=== PATIENT | female | born 1945 | race Caucasian/White ===

== ENCOUNTER 2020-03-18 10:27 | Inpatient (IN) | payer MEDICARE, OTHER ==
--- NOTE | 2020-03-18 11:49 | CR ---
PROCEDURE INFORMATION: Exam: XR Chest, 1 View Exam date and time: 03/18/2020 11:31 AM Age: 74 years old Clinical indication: Shortness of breath; Additional info: Shortness of breath; Covid +; Hypoxia TECHNIQUE: Imaging protocol: XR of the chest Views: 1 view. COMPARISON: CT Chest w Cont 10/04/2017 2:09 PM FINDINGS: Lungs: There are mild patchy scattered airspace infiltrates. Pleural space: Unremarkable. No pleural effusion. No pneumothorax. Heart/Mediastinum: Unremarkable. No cardiomegaly. Bones/joints: Degenerative narrowing bilateral shoulder joints with sclerotic bilateral humeral heads and remodeling deformity is identified. Left shoulder heterotopic bone formation. Soft tissues: There is a left chest wall pacemaker with dual leads. IMPRESSION: 1. Patchy airspace infiltrates compatible with pneumonitis in the correct clinical setting. 2. 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 3. Stable left chest wall pacemaker
--- NOTE | 2020-03-18 11:50 | EDM.PDOC ---
"ED HPI GENERAL MEDICAL PROBLEM - General Chief Complaint: Respiratory Problem Stated Complaint: covid+ ambulance Time Seen by Provider: 03/18/20 11:20 Source of Information: Reports: Patient, EMS, EMS Notes Reviewed, Old Records, RN, RN Notes Reviewed History Limitations: Reports: No Limitations - History of Present Illness INITIAL COMMENTS - FREE TEXT/NARRATIVE: Patient presents to the ED via EMS with complaints of shortness of breath and weakness. The patient states she was diagnosed with COVID on 03/14/2020 following symptoms of weakness and muscle aches which began 03/09/2020. She states her shortness of breath, weakness, and muscle aches have progressively worsened since she was seen in the clinic on the . She is unable to check her saturations at home, but her oxygen saturations were noted to be in the mid- 80s or RA upon EMS arrival. She attest to a history of CHF and denies asthma/COPD. She denies headache, fever, vision changes, chest pain/pressure, palpitations, dyspepsia, vomiting, or diarrhea. She does attest to shaking chills and nausea. She denies tobacco, alcohol, or recreational drug use. - Related Data Allergies Allergy/AdvReac Type Severity Reaction Status Date / Time azithromycin Allergy Nausea Verified 10/04/17 13:19 ceftriaxone Allergy Cannot Verified 10/04/17 13:19 Remember doxycycline Allergy Nausea and Verified 10/04/17 13:19 Vomiting erythromycin base Allergy Nausea Verified 10/04/17 13:19 Estrogens Allergy Other Verified 10/04/17 13:19 furosemide Allergy Hypotension Verified 10/04/17 13:19 levofloxacin [From Levaquin] Allergy Nausea Verified 10/04/17 13:19 lisinopril Allergy Hypotension Verified 10/04/17 13:19 losartan potassium Allergy Cough Verified 10/04/17 13:19 [From Cozaar] metoprolol succinate Allergy Hypotension Verified 10/04/17 13:19 [From Toprol XL] morphine Allergy Lightheaded Verified 10/04/17 13:19 ness ramipril Allergy Hypotension Verified 10/04/17 13:19 simvastatin Allergy Weakness Verified 10/04/17 13:19 Thiazides Allergy Hypotension Verified 10/04/17 13:19 flu vaccine Allergy Nausea and Uncoded 10/04/17 13:19 Vomiting statins Allergy Weakness Uncoded 10/04/17 13:19 Home Meds: Home Meds Ascorbic Acid [Vitamin C] 1 tab PO DAILY 07/17/14 [History] Aspirin [Adult Low Dose Aspirin EC] 1 tab PO DAILY 07/17/14 [History] Bumetanide [Bumex] 0.5 mg PO DAILY 07/17/14 [History] Cetirizine [ZyrTEC] 1 tab PO DAILY PRN 07/17/14 [History] Cyclobenzaprine [Flexeril] 1 tab PO BID 07/17/14 [History] Hydrocodone/Acetaminophen [Everett 10-325] 1 tab PO ASDIRECTED PRN 07/17/14 [History] Lidocaine 5% [Lidoderm 5%] 1 patch TOP DAILY PRN 07/17/14 [History] Multivit-Min/FA/Lycopen/Lutein [Centrum Silver Tablet] 1 tab PO DAILY 07/17/14 [History] Nitroglycerin [Nitrostat] 1 tab SL ASDIRECTED PRN 07/17/14 [History] Pantoprazole [ProTONIX] 1 tab PO DAILY 07/17/14 [History] Red Yeast Rice 1 tab PO DAILY 07/17/14 [History] Vitamin D 1 tab PO DAILY 07/17/14 [History] allopurinoL [Zyloprim] 1 tab PO DAILY 07/17/14 [History] carvediloL [Coreg] 12.5 mg PO BID 07/17/14 [History] metFORMIN [Glucophage] 1 tab PO BID 07/17/14 [History] oxyCODONE ER [OxyCONTIN] 1 tab PO BID 07/17/14 [History] Albuterol Sulfate [Proventil Hfa] 2 puff IH Q4HR PRN 03/14/15 [History] Valsartan [Diovan] 160 mg PO DAILY 03/14/15 [History] Heparin Sodium/D5W [Heparin 25,000 Units in D5W 500 ML] 500 ml IV TITRATE bag 03/15/15 [Rx] Nystatin [Nystatin Crm] 15 gm TOP TID tube 03/15/15 [Rx] Past Medical History HEENT History: Reports: Impaired Vision Cardiovascular History: Reports: High Cholesterol, Hypertension, [place], Pacemaker Respiratory History: Reports: SOB Gastrointestinal History: Reports: Cholelithiasis Endocrine/Metabolic History: Reports: Diabetes, Type II - Past Surgical History Other Musculoskeletal Surgeries/Procedures:: back surgery X5 Social & Family History - Family History Family Medical History: No Pertinent Family History - Caffeine Use Caffeine Use: Reports: None ED ROS GENERAL - Review of Systems Review Of Systems: Comprehensive ROS is negative, except as noted in HPI. ED EXAM, GENERAL - Physical Exam Exam: See Below Exam Limited By: No Limitations General Appearance: Alert, Mild Distress (Dyspnea at rest) Eye Exam: Bilateral Eye: Abnormal EOM, Normal Inspection, PERRL (4mm) Ears: Normal External Exam, Normal Canal, Hearing Grossly Normal, Normal TMs Ear Exam: Bilateral Ear: Auricle Normal, Canal Normal, TM normal Throat/Mouth: Normal Inspection, Normal Voice, No Airway Compromise. No: Normal Oropharynx (Dry mucous membranes) Head: Atraumatic, Normocephalic Neck: Normal Inspection, Supple, Non-Tender, Full Range of Motion. No: Lymphadenopathy (L), Lymphadenopathy (R) Respiratory/Chest: Chest Non-Tender, Decreased Breath Sounds, Rales (To left lobes), Wheezing (Inspiratory to bilateral upper lobes) Cardiovascular: Normal Peripheral Pulses, Regular Rate, Rhythm, No Gallop, No JVD, No Murmur, No Rub. No: No Edema Peripheral Pulses: 1+: Dorsalis Pedis (L), Dorsalis Pedis (R), 2+: Radial (L), Radial (R) GI/Abdominal: Normal Bowel Sounds, Soft, Non-Tender, No Distention, No Mass, Pelvis Stable (Female) Exam: Deferred Rectal (Female) Exam: Deferred Back Exam: Normal Inspection, Full Range of Motion Extremities: Normal Range of Motion, Non-Tender, Normal Capillary Refill, Pedal Edema (+1 pitting, bilaterally) Neurological: Alert, Oriented, CN II-XII Intact, Normal Cognition, No Motor/Sensory Deficits Psychiatric: Normal Affect, Normal Mood Skin Exam: Warm, Dry, Intact, Pallor. No: Ecchymosis, Erythema, Mottled, Petechiae #1 Interpretation EKG Date: 03/18/20 Time: 12:02 Rhythm: Other (V-Paced) Course - Vital Signs Last Recorded V/S: Last Vital Signs Temp 98.1 F 03/18/20 10:56 Pulse 77 03/18/20 10:56 Resp 18 03/18/20 10:56 BP 122/45 L 03/18/20 10:56 Pulse Ox 86 L 03/18/20 10:56 - Orders/Labs/Meds Orders: Active Orders 24 hr Category Date Time Status EKG Documentation Completion [RC] STAT Care 03/18/20 11:54 Active Labs: Laboratory Tests 03/18/20 03/18/20 03/18/20 Range/Units 11:39 11:39 11:39 WBC 5.6 (5.0-10.0) 10^3/uL RBC 4.15 L (4.2-5.4) 10^6/uL Hgb 12.4 (12.0-16.0) g/dL Hct 38.8 (37.0-47.0) % MCV 93.5 D (80-100) fL MCH 29.9 (27.0-34.0) pg MCHC 32.0 L (33.0-35.0) g/dL Plt Count 113 L D (150-450) 10^3/uL Neut % (Auto) 67.8 (42.2-75.2) % Lymph % (Auto) 18.8 L (20.5-50.1) % Nash % (Auto) 12.1 H (2-8) % Eos % (Auto) 1.1 (1.0-3.0) % Baso % (Auto) 0.2 (0.0-1.0) % D-Dimer, Quantitative 1930 H (0-400) ng/mL Sodium 135 L (136-145) mmol/L Potassium 4.3 (3.5-5.1) mmol/L Chloride 100 (98-107) mmol/L Carbon Dioxide 27 (21-32) mmol/L Anion Gap 12.3 (7-13) mEq/L BUN 15 (7-18) mg/dL Creatinine 0.95 (0.55-1.02) mg/dL Est Cr Clr Drug Dosing 50.52 mL/min Estimated GFR (MDRD) 58 BUN/Creatinine Ratio 15.8 (No establ ref range) Glucose 120 H (74-99) mg/dL Lactic Acid (0.4-2.0) mmol/L Calcium 8.2 L (8.5-10.1) mg/dL Total Bilirubin 0.5 (0.2-1.0) mg/dL AST 32 (15-37) U/L ALT 33 (14-59) U/L Alkaline Phosphatase 98 (46-116) U/L Troponin I 0.025 (0.000-0.056) ng/mL B-Natriuretic Peptide 81 (0-100) pg/ml Total Protein 6.3 L (6.4-8.2) g/dL Albumin 2.9 L (3.4-5.0) g/dL Globulin 3.4 Albumin/Globulin Ratio 0.85 12/11/20 Range/Units 11:39 WBC (5.0-10.0) 10^3/uL RBC (4.2-5.4) 10^6/uL Hgb (12.0-16.0) g/dL Hct (37.0-47.0) % MCV (80-100) fL MCH (27.0-34.0) pg MCHC (33.0-35.0) g/dL Plt Count (150-450) 10^3/uL Neut % (Auto) (42.2-75.2) % Lymph % (Auto) (20.5-50.1) % Nash % (Auto) (2-8) % Eos % (Auto) (1.0-3.0) % Baso % (Auto) (0.0-1.0) % D-Dimer, Quantitative (0-400) ng/mL Sodium (136-145) mmol/L Potassium (3.5-5.1) mmol/L Chloride (98-107) mmol/L Carbon Dioxide (21-32) mmol/L Anion Gap (7-13) mEq/L BUN (7-18) mg/dL Creatinine (0.55-1.02) mg/dL Est Cr Clr Drug Dosing mL/min Estimated GFR (MDRD) BUN/Creatinine Ratio (No establ ref range) Glucose (74-99) mg/dL Lactic Acid 0.8 (0.4-2.0) mmol/L Calcium (8.5-10.1) mg/dL Total Bilirubin (0.2-1.0) mg/dL AST (15-37) U/L ALT (14-59) U/L Alkaline Phosphatase (46-116) U/L Troponin I (0.000-0.056) ng/mL B-Natriuretic Peptide (0-100) pg/ml Total Protein (6.4-8.2) g/dL Albumin (3.4-5.0) g/dL Globulin Albumin/Globulin Ratio Meds: Medications Discontinued Medications Generic Name Dose Route Start Last Admin Trade Name Park PRN Reason Stop Dose Admin Iopamidol 100 ml 03/18/20 12:40 03/18/20 14:10 Isovue-370 (76%) IVPUSH 03/18/20 12:41 79 ml ONETIME ONE Administration - Radiology Interpretation Free Text/Narrative:: [facility] [place] [facility] Final Radiology Report Call: [phone] assistance Online chat: [email or web address] Name: RUBY HOLLY Age: 74Years F Date: 03/18/2020 SSN: -- : [id number] Study: CT CHEST W CONT Requesting Physician: Ann Marie Maxwell Images: [id number] Addl Studies: Provided Clinical History: Shortness of breath; COVID+, D-Dimer above 1900, RULE OUT PE Contrast: With Contrast Medium: isovue 300 Contrast Amount: 79 mL Contrast Method: Intravenous (IV) Page 1 of 2 PROCEDURE INFORMATION: Exam: CT Chest With Contrast; Diagnostic Exam date and time: 03/18/2020 1:29 PM Age: 74 years old Clinical indication: Shortness of breath; Prior surgery; Surgery date: 6+ months; Surgery type: Pacemaker; Additional info: Shortness of breath; Covid+, d-dimer above 1900, rule out pe TECHNIQUE: Imaging protocol: Diagnostic computed tomography of the chest with intravenous contrast. Radiation optimization: All CT scans at this facility use at least one of these dose optimization techniques: automated exposure control; mA and/or kV adjustment per patient size (includes targeted exams where dose is matched to clinical indication); or iterative reconstruction. Contrast material: ISOVUE 300; Contrast volume: 79 ml; Contrast route: INTRAVENOUS (IV); COMPARISON: CT Chest w Cont 10/04/2017 2:09 PM FINDINGS: Tubes, catheters and devices: Stable implanted left chest wall pacemaker and lead wires. Pulmonary arteries: The main pulmonary trunk measures 3.1 cm and is associated with pulmonary hypertension. No pulmonary artery filling defects. Lungs: Unremarkable. Mild patchy bilateral small round opacities predominating within the upper lobes. No masses. Pleural space: Unremarkable. No pneumothorax. Right small pericardial effusion and trace left trace pleural effusion. Heart: Unremarkable. Stable cardiomegaly. Small pericardial effusion with some improvement in comparison to prior exam. Aorta: Mild atherosclerotic calcification No aortic aneurysm. Lymph nodes: Unremarkable. No enlarged lymph nodes. RUBY HOLLY | Final Radiology Report CONFIDENTIALITY STATEMENT This report is intended only for use by the referring physician, and only in accordance with law. If you received this in error, call [phone]. Page 2 of 2 Bones/joints: Unchanged degenerative thoracic disease with greatest severity at the thoracolumbar spine. No acute fracture. Soft tissues: Unremarkable. Liver: Moderate diffuse hepatic fatty infiltration on visualized imaging. Cholecystectomy. IMPRESSION: 1. No evidence of pulmonary embolic disease. 2. Multifocal round ground-glass opacities predominating within the upper lobes. Commonly reporting imaging features of(COVID-19) pneumonia are present. These findings are nonspecific and can occur with a variety of infectious and noninfectious processes. 3. Small bilateral pleural effusions. 4. Chronic findings which include moderate cardiomegaly with small pericardial effusion, pulmonary hypertension, left chest wall pacemaker, hepatic steatosis, cholecystectomy and thoracic degenerative disease. Thank you for allowing us to participate in the care of your patient. Dictated and Authenticated by: Melisa Alfred MD 03/18/2020 2:42 PM Central Time ([place] & [place]) - Re-Assessments/Exams Free Text/Narrative Re-Assessment/Exam: 03/18/20 Workup unremarkable for acute processes. D-dimer elevated, no evidence of PE on study. Case discussed with Dr. Pereira who kindly agreed to accept the patient for inpatient admission for COVID pneumonia and hypoxia. Plan of care discussed with patient who verbalized understanding and agreement. Departure - Departure Time of Disposition: 14:49 Disposition: Admitted As Inpatient 66 Condition: Good Clinical Impression: Pneumonia due to COVID-19 virus, Hypoxia, Elevated d-dimer - Discharge Information Forms: ED Department Discharge Sepsis Event Note (ED) - Evaluation Sepsis Screening Result: No Definite Risk - Focused Exam Vital Signs: Vital Signs Temp Pulse Resp BP Pulse Ox 03/18/20 10:56 98.1 F 77 18 122/45 L 86 L - My Orders Last 24 Hours: My Active Orders 03/18/20 11:54 EKG Documentation Completion [RC] STAT - Assessment/Plan Last 24 Hours: My Active Orders 03/18/20 11:54 EKG Documentation Completion [RC] STAT"
[2020-03-18 12:14] LABS: ANION GAP 12.3 mEq/L (7-13)
[2020-03-18] MEDS ORDERED: Iopamidol 755 Mg/ML 100 ML Bottle IVPUSH ONE (12:40)
--- NOTE | 2020-03-18 14:43 | CT ---
PROCEDURE INFORMATION: Exam: CT Chest With Contrast; Diagnostic Exam date and time: 03/18/2020 1:29 PM Age: 74 years old Clinical indication: Shortness of breath; Prior surgery; Surgery date: 6+ months; Surgery type: Pacemaker; Additional info: Shortness of breath; Covid+, d-dimer above 1900, rule out pe TECHNIQUE: Imaging protocol: Diagnostic computed tomography of the chest with intravenous contrast. Radiation optimization: All CT scans at this facility use at least one of these dose optimization techniques: automated exposure control; mA and/or kV adjustment per patient size (includes targeted exams where dose is matched to clinical indication); or iterative reconstruction. Contrast material: ISOVUE 300; Contrast volume: 79 ml; Contrast route: INTRAVENOUS (IV); COMPARISON: CT Chest w Cont 10/04/2017 2:09 PM FINDINGS: Tubes, catheters and devices: Stable implanted left chest wall pacemaker and lead wires. Pulmonary arteries: The main pulmonary trunk measures 3.1 cm and is associated with pulmonary hypertension. No pulmonary artery filling defects. Lungs: Unremarkable. Mild patchy bilateral small round opacities predominating within the upper lobes. No masses. Pleural space: Unremarkable. No pneumothorax. Right small pericardial effusion and trace left trace pleural effusion. Heart: Unremarkable. Stable cardiomegaly. Small pericardial effusion with some improvement in comparison to prior exam. Aorta: Mild atherosclerotic calcification No aortic aneurysm. Lymph nodes: Unremarkable. No enlarged lymph nodes. Bones/joints: Unchanged degenerative thoracic disease with greatest severity at the thoracolumbar spine. No acute fracture. Soft tissues: Unremarkable. Liver: Moderate diffuse hepatic fatty infiltration on visualized imaging. Cholecystectomy. IMPRESSION: 1. No evidence of pulmonary embolic disease. 2. Multifocal round ground-glass opacities predominating within the upper lobes. Commonly reporting imaging features of(COVID-19) pneumonia are present. These findings are nonspecific and can occur with a variety of infectious and noninfectious processes. 3. Small bilateral pleural effusions. 4. Chronic findings which include moderate cardiomegaly with small pericardial effusion, pulmonary hypertension, left chest wall pacemaker, hepatic steatosis, cholecystectomy and thoracic degenerative disease.
[2020-03-18] MEDS ORDERED: Docusate Sodium 100 MG Cap PO PRN (15:07)
[2020-03-18] MEDS ORDERED: Acetaminophen 325 MG Tab PO PRN (15:07)
[2020-03-18] MEDS ORDERED: oxyCODONE 5 MG Tab PO PRN (15:07)
[2020-03-18] MEDS ORDERED: 50% Dextrose in Water 50 ML Syringe IV PRN (15:31)
[2020-03-18] MEDS ORDERED: Glucagon,Human Recombinant 1 MG Vial IM PRN (15:31)
[2020-03-18] MEDS ORDERED: Lidocaine 5% 700 MG Patch TOP PRN (15:34)
[2020-03-18] MEDS ORDERED: Nitroglycerin 0.4 MG Tab.SL SL PRN (15:34)
--- NOTE | 2020-03-18 16:08 | HP ---
CHIEF COMPLAINT: Shortness of breath. HISTORY OF PRESENT ILLNESS: The patient is a 74-year-old female who was admitted through the emergency room because the patient has been complaining of shortness of breath and weakness and she was diagnosed with COVID on 03/14/2020 following symptoms of weakness and muscle ache, which began 03/09/2020, and the patient's shortness of breath and weakness and muscle aches have progressively worsened since she was seen at the clinic on the . In the emergency room, her oxygen saturation on room air was in the 80s and she had a CAT scan of the chest which showed ground-glass appearance compatible with COVID pneumonia. Because of the above, she was then admitted for further evaluation and management. PAST MEDICAL HISTORY: Remarkable for dyslipidemia, hypertension, coronary artery disease, history of pacemaker placement, type 2 diabetes mellitus. FAMILY HISTORY: Noncontributory. SOCIAL HISTORY: The patient is . Nonsmoker, nonalcohol drinker. HOME MEDICATIONS: Ascorbic acid, aspirin, Bumex, Flexeril, hydrocodone, multivitamins, Protonix, vitamin D, allopurinol, Coreg, metformin, oxycodone, valsartan, albuterol inhaler. ALLERGIES: Azithromycin, ceftriaxone, doxycycline, estrogen, Lasix, levofloxacin, lisinopril, losartan, metoprolol, ramipril, simvastatin, thiazides, and statins. REVIEW OF SYSTEMS: The patient denies any headache, fever, chills, chest pain, palpitation, abdominal pain, vomiting, and diarrhea. PHYSICAL EXAMINATION: General: The patient is alert and oriented in mild respiratory distress. Vital Signs: Blood pressure is 122/45, pulse of 77, respirations 18, temperature of 98.1, and saturation is 86% on room air. SHEENT: Normocephalic. There are pink palpebral conjunctivae. Sclerae anicteric. Neck: No JVD. No lymphadenopathy. Heart: Regular rate and rhythm. No gallops. No rubs. Lungs: Decreased breath sounds on both bases with faint crackles on the left lung, and there is occasional wheezing. Abdomen: Soft, nontender, bowel sounds positive. Extremities: Negative for any calf tenderness. There is trace to 1+ bilateral pedal edema. LABORATORY DATA: Lab workup, CBC; WBC is 5.6, hemoglobin is 12.4, hematocrit is 38.8, platelets 113. D-dimer is 1930. Lactic acid is 0.8. Comp panel; sodium is 135, glucose is 120, calcium of 8.2, total protein is 6.3, albumin is 2.9, the rest of the panel unremarkable. Troponin is 0.025. BNP is 81, which is within normal limits. Chest x-ray showed patchy airspace infiltrates compatible with pneumonitis. CAT scan of the chest is negative for any evidence of pulmonary embolic disease. There is multifocal round ground-glass opacity within the upper lobes compatible with COVID pneumonia. ADMITTING DIAGNOSES: 1. Coronavirus disease pneumonia. 2. Hypoxemia. 3. History of pacemaker placement. 4. Coronary artery disease. 5. Type 2 diabetes mellitus. TREATMENT PLAN: The patient is going to be admitted to the COVID Unit. She will be started on IV dexamethasone. We will also discuss with the patient about remdesivir. She will be on DVT prophylaxis and we will resume her home medication and the rest of the management as necessary. [facility] /[id number]
[2020-03-18] MEDS: Dexamethasone 4 MG/ML SDV IVPUSH SCH (16:39)
[2020-03-18] MEDS: Albuterol 6.7 GM Inhaler INH SCH ×2 (16:40→21:57)
[2020-03-18] MEDS: Enoxaparin 40 MG/0.4 ML Syringe SUBCUT SCH (16:40)
[2020-03-18] MEDS: Mometasone Furoate Powder 220 MCG/Puff 14 Dose Inhaler INH SCH ×2 (16:47→17:01)
[2020-03-18] MEDS: Insulin Lispro 100 Units/ML 3 ML Vial SUBCUT SCH ×2 (17:19→21:29)
[2020-03-18] MEDS: Piperacillin/Tazobactam 3.375 GM in Sodium Chloride 0.9% 100 ML IV SCH (17:52)
[2020-03-18] MEDS: oxyCODONE ER 10 MG TAB.ER PO SCH (22:01)
[2020-03-18] MEDS: Nystatin Crm 15 GM Tube TOP SCH (22:04)
[2020-03-18] MEDS: Carvedilol 25 MG Tab PO SCH (22:11)
[2020-03-18] MEDS: Sodium Chloride 0.9% 10 ML Syringe FLUSH PRN (22:14)
[2020-03-19] MEDS: Sodium Chloride 0.9% 10 ML Syringe FLUSH PRN ×5 (00:16→20:43)
[2020-03-19] MEDS: Piperacillin/Tazobactam 3.375 GM in Sodium Chloride 0.9% 100 ML IV SCH ×5 (00:17→23:33)
[2020-03-19] MEDS: Pantoprazole 40 MG Tab.CR PO SCH (06:02)
[2020-03-19] MEDS: Mometasone Furoate Powder 220 MCG/Puff 14 Dose Inhaler INH SCH ×2 (06:04→17:39)
[2020-03-19 06:41] LABS: ANION GAP 12.2 mEq/L (7-13)
[2020-03-19] MEDS ORDERED: Bumetanide 1 MG Tab PO SCH (09:00)
--- NOTE | 2020-03-19 09:15 | PN ---
DATE: 03/19/2020 SUBJECTIVE: The patient had a good night sleep. She still has some shortness of breath, but this has been stable, and this morning she is complaining of diarrhea. Otherwise, she denies any fever, chills, chest pain, abdominal pain, nor any other complaints. LABORATORY DATA: Lab workup this morning. CBC; WBC 2.5, hemoglobin is 13.5, hematocrit is 42.1, platelets 138. Comp panel is remarkable for a glucose of 146, total protein of 6.2, albumin of 3. The rest of the panel unremarkable. OBJECTIVE: Vital Signs: Blood pressure is 127/58, pulse of 72, respiration of 18, temperature of 96.5, saturation is 97% on 2 L per nasal cannula. Heart: Regular rate and rhythm. Normal S1 and S2. No gallops. No rubs. Lungs: Diminished breath sounds on both bases but no crackles, no wheezing. Abdomen: Obese, soft, nontender. Bowel sounds positive. Extremities: Negative for any significant pedal edema. No calf tenderness. MEDICATIONS: Reviewed. PLAN: We will continue with her present management, and with regard to her diarrhea, I am just going to give her some Imodium, and if this diarrhea continues, then we will do the stool analysis and probably hold her Zosyn. [facility] /[id number]
[2020-03-19] MEDS: Insulin Lispro 100 Units/ML 3 ML Vial SUBCUT SCH ×4 (09:48→20:51)
[2020-03-19] MEDS: Enoxaparin 40 MG/0.4 ML Syringe SUBCUT SCH (09:50)
[2020-03-19] MEDS: Multivitamins, Therapeutic with Minerals Tab PO SCH (09:51)
[2020-03-19] MEDS: Aspirin 81 MG Tab.EC PO SCH (09:51)
[2020-03-19] MEDS: Allopurinol 300 MG Tab PO SCH (09:51)
[2020-03-19] MEDS: oxyCODONE ER 10 MG TAB.ER PO SCH ×2 (09:52→20:49)
[2020-03-19] MEDS: Ascorbic Acid 500 MG Tab PO SCH (09:53)
[2020-03-19] MEDS: Carvedilol 25 MG Tab PO SCH ×2 (09:55→20:45)
[2020-03-19] MEDS: Dexamethasone 4 MG/ML SDV IVPUSH SCH (09:57)
[2020-03-19] MEDS: Nystatin Crm 15 GM Tube TOP SCH ×3 (09:57→20:46)
[2020-03-19] MEDS: REMDESIVIR 100 MG in Sodium Chloride 0.9% 100 ML IV SCH (09:58)
[2020-03-19] MEDS: Albuterol 6.7 GM Inhaler INH SCH ×4 (09:59→20:48)
[2020-03-19] MEDS: Loperamide 2 MG Cap PO PRN (12:58)
--- NOTE | 2020-03-19 13:49 | HP ---
CONTINUATION: I have also discussed with the patient regarding the EUA for remdesivir and the patient is agreeable to this. I am also going to empirically put the patient on IV antibiotics (Zosyn) and we will also get blood cultures. The patient is a full code. [facility] /[id number]
--- NOTE | 2020-03-19 13:49 | HP ---
CONTINUATION: I spoke with the patient and provided information about remdesivir treatment as being under emergency use authorization and not fully FDA approved or reviewed. I discussed potential side effects including liver abnormalities and also discussed other potential treatment options that are currently not FDA approved to treat COVID-19. The patient gives permission for remdesivir. [facility] /[id number]
[2020-03-20] MEDS: Piperacillin/Tazobactam 3.375 GM in Sodium Chloride 0.9% 100 ML IV SCH ×3 (05:31→18:42)
[2020-03-20] MEDS: Pantoprazole 40 MG Tab.CR PO SCH (05:31)
[2020-03-20] MEDS: Loperamide 2 MG Cap PO PRN (05:32)
[2020-03-20] MEDS: Mometasone Furoate Powder 220 MCG/Puff 14 Dose Inhaler INH SCH ×3 (05:32→18:42)
[2020-03-20] MEDS: Enoxaparin 40 MG/0.4 ML Syringe SUBCUT SCH (08:20)
[2020-03-20] MEDS: oxyCODONE ER 10 MG TAB.ER PO SCH ×2 (08:21→21:47)
[2020-03-20] MEDS: Multivitamins, Therapeutic with Minerals Tab PO SCH (08:23)
[2020-03-20] MEDS: Allopurinol 300 MG Tab PO SCH (08:23)
[2020-03-20] MEDS: Aspirin 81 MG Tab.EC PO SCH (08:24)
[2020-03-20] MEDS: Carvedilol 25 MG Tab PO SCH ×3 (08:24→21:50)
[2020-03-20] MEDS: Insulin Lispro 100 Units/ML 3 ML Vial SUBCUT SCH ×4 (08:26→21:44)
[2020-03-20] MEDS: Ascorbic Acid 500 MG Tab PO SCH (08:27)
[2020-03-20] MEDS: Dexamethasone 4 MG/ML SDV IVPUSH SCH (08:28)
[2020-03-20] MEDS: REMDESIVIR 100 MG in Sodium Chloride 0.9% 100 ML IV SCH (08:32)
--- NOTE | 2020-03-20 09:58 | PN ---
DATE: 03/20/2020 SUBJECTIVE: The patient mentioned that she still has loose bowel movement every time she gets the Zosyn, but Imodium seems to be helping. The patient also mentioned that she only takes Bumex 0.5 mg every other day and recently, she has been also getting 1 mg daily. She feels that she is getting a little bit dehydrated. Otherwise, denies any worsening of shortness of breath. Denies any chest pain, fever, chills, orthopnea, PND, or any other complaints. LABORATORY DATA: Lab workup this morning, glucose is 138. OBJECTIVE: Vital Signs: Blood pressure is 159/83, pulse of 83, respiration of 20, temperature of 98.6, saturation is 93% on 2 L per nasal cannula. Heart: Regular rate and rhythm. Normal S1 and S2. No gallops. No rubs. Lungs: Diminished breath sounds on both bases, but no significant crackles, no wheezing. Abdomen: Obese, soft, nontender. Bowel sounds positive. Extremities: Negative for any significant pedal edema. No calf tenderness. PLAN: I am going to hold her Bumex. Otherwise, we will continue with her dexamethasone IV, remdesivir, and continue with Zosyn. I will check for CBC and CMP in a.m. [facility] /[id number]
[2020-03-20] MEDS: Nystatin Crm 15 GM Tube TOP SCH ×3 (10:00→21:52)
[2020-03-20] MEDS: Albuterol 6.7 GM Inhaler INH SCH ×4 (10:00→21:53)
[2020-03-20] MEDS: Acetaminophen/HYDROcodone 325-10 MG Tab PO PRN (16:55)
[2020-03-20] MEDS: Melatonin 3 MG Tab PO PRN (21:46)
[2020-03-21] MEDS: Sodium Chloride 0.9% 10 ML Syringe FLUSH PRN ×3 (00:14→08:13)
[2020-03-21] MEDS: Piperacillin/Tazobactam 3.375 GM in Sodium Chloride 0.9% 100 ML IV SCH ×2 (00:15→05:59)
[2020-03-21] MEDS: Pantoprazole 40 MG Tab.CR PO SCH (05:57)
[2020-03-21] MEDS: Mometasone Furoate Powder 220 MCG/Puff 14 Dose Inhaler INH SCH ×3 (06:05→17:16)
[2020-03-21] MEDS: Ondansetron 4 MG Tab.DIS PO PRN (06:12)
[2020-03-21 06:52] LABS: ANION GAP 14.5 mEq/L (7-13)
[2020-03-21] MEDS: REMDESIVIR 100 MG in Sodium Chloride 0.9% 100 ML IV SCH (08:01)
[2020-03-21] MEDS: Enoxaparin 40 MG/0.4 ML Syringe SUBCUT SCH (08:05)
[2020-03-21] MEDS: Loperamide 2 MG Cap PO PRN ×2 (08:07→20:59)
[2020-03-21] MEDS: Multivitamins, Therapeutic with Minerals Tab PO SCH (08:07)
[2020-03-21] MEDS: Carvedilol 25 MG Tab PO SCH ×3 (08:07→17:16)
[2020-03-21] MEDS: Allopurinol 300 MG Tab PO SCH (08:07)
[2020-03-21] MEDS: Ascorbic Acid 500 MG Tab PO SCH (08:07)
[2020-03-21] MEDS: oxyCODONE ER 10 MG TAB.ER PO SCH ×2 (08:08→20:59)
[2020-03-21] MEDS: Aspirin 81 MG Tab.EC PO SCH (08:09)
[2020-03-21] MEDS: Dexamethasone 4 MG/ML SDV IVPUSH SCH (08:13)
[2020-03-21] MEDS: Albuterol 6.7 GM Inhaler INH SCH ×4 (08:14→21:05)
[2020-03-21] MEDS: Nystatin Crm 15 GM Tube TOP SCH (08:14)
[2020-03-21] MEDS: Insulin Lispro 100 Units/ML 3 ML Vial SUBCUT SCH ×5 (09:39→21:02)
[2020-03-21] MEDS ORDERED: Sodium Chloride 0.9% 1,000 ML IV SCH (09:45)
[2020-03-21] MEDS ORDERED: Nystatin Topical Powder 30 GM Bottle TOP PRN (09:58)
--- NOTE | 2020-03-21 12:05 | PN ---
DATE: 03/21/2020 SUBJECTIVE: The patient is still complaining of loose bowel movement, and still feeling weak and appetite being poor. The patient denies though any chest pain. Denies any worsening of shortness of breath, abdominal pain, vomiting, nor any other complaints. LABORATORY DATA: Lab workup this morning. CBC unremarkable. Comp panel; carbon dioxide is 14.5, creatinine is 1.04, glucose is 144, AST of 44, total protein of 6.1, albumin is 3.1. The rest of the panel unremarkable. OBJECTIVE: Vital Signs: Blood pressure is 148/68, pulse of 74, respirations of 18, temperature of 98.2, saturation is 96% on 2 L per nasal cannula. SHEENT: Normocephalic. There are pink palpebral conjunctivae. Sclerae anicteric. Neck: No JVD. No lymphadenopathy. Heart: Regular rate and rhythm. Normal S1 and S2. No gallops. No rubs. Lungs: Diminished breath sounds on both bases, but no crackles, no wheezing. Abdomen: Moderately obese, soft, nontender. Bowel sounds positive. Extremities: Negative for any pedal edema. No calf tenderness. MEDICATIONS: Reviewed. PLAN: I am going to discontinue the Zosyn as this is causing the patient some diarrhea and her WBC is also within normal limits, and I do not think that she has any underlying bacterial pneumonia, although procalcitonin level is still pending, but we will continue with her dexamethasone, Remdesivir, and the rest of her management. [facility] /[id number]
[2020-03-21] MEDS: Acetaminophen/HYDROcodone 325-10 MG Tab PO PRN ×2 (13:48→22:31)
[2020-03-21] MEDS: Melatonin 3 MG Tab PO PRN (21:00)
[2020-03-22] MEDS: Loperamide 2 MG Cap PO PRN ×2 (01:03→05:43)
[2020-03-22] MEDS: Ondansetron 4 MG Tab.DIS PO PRN (03:12)
[2020-03-22] MEDS: Pantoprazole 40 MG Tab.CR PO SCH (05:43)
[2020-03-22] MEDS: Mometasone Furoate Powder 220 MCG/Puff 14 Dose Inhaler INH SCH ×3 (05:45→17:54)
[2020-03-22 07:08] LABS: ANION GAP 11.4 mEq/L (7-13); CHLORIDE,CL 106 mmol/L (98-107); SODIUM,NA 145 mmol/L (136-145)
[2020-03-22] MEDS ORDERED: Potassium Chloride 10 MEQ Tab.ER PO ONE (07:24)
[2020-03-22] MEDS: Ascorbic Acid 500 MG Tab PO SCH (08:27)
[2020-03-22] MEDS: Allopurinol 300 MG Tab PO SCH (08:27)
[2020-03-22] MEDS: Carvedilol 25 MG Tab PO SCH ×2 (08:28→17:53)
[2020-03-22] MEDS: Multivitamins, Therapeutic with Minerals Tab PO SCH (08:28)
[2020-03-22] MEDS: oxyCODONE ER 10 MG TAB.ER PO SCH ×2 (08:29→21:00)
[2020-03-22] MEDS: Dexamethasone 4 MG/ML SDV IVPUSH SCH (08:30)
[2020-03-22] MEDS: Aspirin 81 MG Tab.EC PO SCH (08:30)
[2020-03-22] MEDS: Enoxaparin 40 MG/0.4 ML Syringe SUBCUT SCH (08:31)
[2020-03-22] MEDS: REMDESIVIR 100 MG in Sodium Chloride 0.9% 100 ML IV SCH (08:37)
[2020-03-22] MEDS ORDERED: Atropine/Diphenoxylate 0.025-2.5 MG Tab PO PRN (09:18)
[2020-03-22] MEDS: Insulin Lispro 100 Units/ML 3 ML Vial SUBCUT SCH ×4 (09:41→20:59)
[2020-03-22] MEDS: Sodium Chloride 0.9% 1,000 ML IV SCH ×2 (10:02→22:25)
[2020-03-22] MEDS: Albuterol 6.7 GM Inhaler INH SCH ×4 (10:06→21:02)
[2020-03-22] MEDS: Nystatin Topical Powder 30 GM Bottle TOP SCH ×3 (10:07→20:20)
--- NOTE | 2020-03-22 12:00 | PN ---
DATE: 03/22/2020 SUBJECTIVE: The patient is still complaining of diarrhea and loose bowel movement, and she had about 8 times bowel movement last night, but she denies any worsening of shortness of breath, no fever, chills, or any significant abdominal pain. LABORATORY DATA: Lab workup this morning, CBC unremarkable, and comp panel; potassium is 3.4, glucose is 136, AST is 44, total protein is 5.8, albumin is 3, the rest of the panel unremarkable. OBJECTIVE: Vital Signs: Blood pressure is 158/79, pulse of 73, respirations of 20, temperature of 98.3, and saturation is 96% on 1 L per nasal cannula. Heart: Regular rate and rhythm. No gallops. No rubs. Lungs: Diminished breath sounds on both bases, but no crackles, no wheezing. Abdomen: Obese, soft, nontender. Bowel sounds positive. Extremities: Negative for any significant pedal edema. No calf tenderness. PLAN: I will give her some more IV fluids cautiously because of her history of CHF. I am going to send her stool for analysis including culture and C diff and I am going to change her Imodium to Lomotil, as Imodium does not seem to be helping her. Otherwise, we will continue with the rest of her management. [facility] /[id number]
[2020-03-22] MEDS: Acetaminophen/HYDROcodone 325-10 MG Tab PO PRN ×2 (15:34→22:44)
[2020-03-22] MEDS: Melatonin 3 MG Tab PO PRN (21:01)
[2020-03-23] MEDS: Pantoprazole 40 MG Tab.CR PO SCH (05:45)
[2020-03-23] MEDS: Mometasone Furoate Powder 220 MCG/Puff 14 Dose Inhaler INH SCH ×3 (05:46→17:24)
[2020-03-23] MEDS: Albuterol 6.7 GM Inhaler INH SCH ×4 (08:30→23:34)
[2020-03-23] MEDS: Carvedilol 25 MG Tab PO SCH ×2 (08:31→18:38)
[2020-03-23] MEDS: oxyCODONE ER 10 MG TAB.ER PO SCH ×2 (08:32→23:30)
[2020-03-23] MEDS: Allopurinol 300 MG Tab PO SCH (08:32)
[2020-03-23] MEDS: Multivitamins, Therapeutic with Minerals Tab PO SCH (08:32)
[2020-03-23] MEDS: Ascorbic Acid 500 MG Tab PO SCH (08:34)
[2020-03-23] MEDS: Aspirin 81 MG Tab.EC PO SCH (08:34)
[2020-03-23] MEDS: Dexamethasone 4 MG/ML SDV IVPUSH SCH (08:36)
[2020-03-23] MEDS: Enoxaparin 40 MG/0.4 ML Syringe SUBCUT SCH (08:39)
[2020-03-23] MEDS: Insulin Lispro 100 Units/ML 3 ML Vial SUBCUT SCH ×4 (09:59→23:28)
[2020-03-23] MEDS: Nystatin Topical Powder 30 GM Bottle TOP SCH ×3 (11:23→23:32)
--- NOTE | 2020-03-23 11:23 | PCM.PN ---
- General Info Date of Service: 03/23/20 Subjective Update: Patient continues to have cough. Still has shortness of breath Was having diarrhea but that has improved with Imodium. Indicates that she has nausea today. - Review of Systems General: Reports: Weakness, Fatigue Pulmonary: Reports: Shortness of Breath, Cough Cardiovascular: Reports: Dyspnea on Exertion Gastrointestinal: Reports: No Symptoms Skin: Reports: No Symptoms - Patient Data Vitals - Most Recent: Last Vital Signs Temp 36.6 C 03/23/20 08:00 Pulse 70 03/23/20 08:31 Resp 20 03/23/20 08:00 BP 153/93 H 03/23/20 08:31 Pulse Ox 93 L 03/23/20 08:00 Weight - Most Recent: 99.79 kg I&O - Last 24 Hours: Intake & Output 03/22/20 03/23/20 03/23/20 22:59 06:59 14:59 Intake Total 1658 552 450 Balance 1658 552 450 Lab Results Last 24 Hours: Laboratory Results - last 24 hr 03/22/20 03/22/20 03/22/20 Range/Units 12:02 16:50 20:57 POC Glucose 146 H 158 H 123 H (83-110) mg/dl 03/23/20 Range/Units 08:24 POC Glucose 108 (83-110) mg/dl Rc Results Last 24 Hours: Microbiology 03/18/20 11:39 Aerobic Blood Culture - Preliminary Blood - Venous - Lab Draw NO GROWTH AFTER 4 DAYS Anaerobic Blood Culture - Final Med Orders - Current: Current Medications Acetaminophen (Tylenol) 650 mg PO Q4H PRN PRN Reason: Pain (Mild 1-3)/fever Last Admin: 03/20/20 13:58 Dose: 650 mg Documented by: Hydrocodone Bitart/Acetaminophen ([place] 325-10 Mg) 1 tab PO Q4H PRN PRN Reason: Pain Last Admin: 03/22/20 22:44 Dose: 1 tab Documented by: Albuterol (Proventil Hfa) 0 gm INH QID [facility] Last Admin: 03/23/20 08:30 Dose: 2 puff Documented by: Allopurinol (Zyloprim) 300 mg PO DAILY [facility] Last Admin: 03/23/20 08:32 Dose: 300 mg Documented by: Ascorbic Acid (Vitamin C) 500 mg PO DAILY [facility] Last Admin: 03/23/20 08:34 Dose: 500 mg Documented by: Aspirin (Halfprin) 81 mg PO DAILY [facility] Last Admin: 03/23/20 08:34 Dose: 81 mg Documented by: Carvedilol (Coreg) 25 mg PO BIDMEALS [facility] Last Admin: 03/23/20 08:31 Dose: 25 mg Documented by: Dexamethasone (Decadron) 6 mg IVPUSH DAILY [facility] Stop: 03/27/20 09:01 Last Admin: 03/23/20 08:36 Dose: 6 mg Documented by: Dextrose/Water (Dextrose 50% In Water) 50 ml IV ASDIRECTED PRN PRN Reason: Hypoglycemia Diphenoxylate HCl/Atropine (Lomotil 0.025-2.5 Mg) 1 tab PO QID PRN PRN Reason: Diarrhea Last Admin: 03/22/20 10:02 Dose: 1 tab Documented by: Docusate Sodium (Colace) 100 mg PO BID PRN PRN Reason: Constipation Enoxaparin Sodium (Lovenox) 40 mg SUBCUT DAILY [facility] Last Admin: 03/23/20 08:39 Dose: 40 mg Documented by: Glucagon (Glucagen) 1 mg IM ASDIRECTED PRN PRN Reason: Hypoglycemia Sodium Chloride (Normal Saline) 1,000 mls @ 75 mls/hr IV ASDIRECTED [facility] Last Infusion: 03/23/20 10:39 Dose: 75 mls/hr Documented by: Insulin Human Lispro (Humalog) 0 unit SUBCUT WITHMEALSANDBED [facility]; Protocol Last Admin: 03/23/20 09:59 Dose: Not Given Documented by: Lidocaine (Lidoderm 5%) 700 mg TOP DAILY PRN PRN Reason: Pain Melatonin (Melatonin) 9 mg PO BEDTIME PRN PRN Reason: Sleep Last Admin: 03/22/20 21:01 Dose: 9 mg Documented by: Mometasone Furoate (Asmanex 220 Mcg) 2 puff INH BIDRT [facility] Last Admin: 03/23/20 06:37 Dose: Not Given Documented by: Multivitamins/Minerals (Vitamins And Minerals) 1 tab PO DAILY [facility] Last Admin: 03/23/20 08:32 Dose: 1 tab Documented by: Nitroglycerin (Nitrostat) 0.4 mg SL ASDIRECTED PRN PRN Reason: Chest Pain Nystatin (Nystop) 0 gm TOP TID [facility] Last Admin: 03/22/20 20:20 Dose: 1 applic Documented by: Ondansetron HCl (Zofran Odt) 4 mg PO Q4H PRN PRN Reason: nausea, able to take PO Last Admin: 03/22/20 03:12 Dose: 4 mg Documented by: Oxycodone HCl (Oxycontin) 10 mg PO BID [facility] Last Admin: 03/23/20 08:32 Dose: 10 mg Documented by: Pantoprazole Sodium (Protonix) 40 mg PO ACBRK [facility] Last Admin: 03/23/20 05:45 Dose: 40 mg Documented by: Sodium Chloride (Saline Flush) 10 ml FLUSH ASDIRECTED PRN PRN Reason: Keep Vein Open Last Admin: 03/21/20 08:13 Dose: 10 ml Documented by: Discontinued Medications Bumetanide (Bumex) 1 mg PO DAILY [facility] Last Admin: 03/19/20 09:51 Dose: 1 mg Documented by: Carvedilol (Coreg) 12.5 mg PO BID [facility] Last Admin: 03/20/20 08:24 Dose: 12.5 mg Documented by: Carvedilol (Coreg) 25 mg PO BID [facility] Last Admin: 03/20/20 21:50 Dose: 12.5 mg Documented by: Remdesivir 200 mg/ Sodium (Chloride) 210 mls @ 210 mls/hr IV ONETIME ONE Stop: 03/18/20 16:59 Last Admin: 03/18/20 16:40 Dose: 210 mls/hr Documented by: Remdesivir 100 mg/ Sodium (Chloride) 100 mls @ 100 mls/hr IV Q24H [facility] Stop: 03/22/20 09:59 Last Admin: 03/22/20 08:37 Dose: 100 mls/hr Documented by: Piperacillin Sod/Tazobactam (Sod 3.375 gm/ Sodium Chloride) 100 mls @ 200 mls/hr IV Q6HR [facility] Last Infusion: 03/21/20 06:39 Dose: Infused Documented by: Sodium Chloride (Normal Saline) 1,000 mls @ 125 mls/hr IV ASDIRECTED [facility] Stop: 03/21/20 17:44 Last Admin: 03/21/20 10:18 Dose: 125 mls/hr Documented by: Iopamidol (Isovue-370 (76%)) 100 ml IVPUSH ONETIME ONE Stop: 03/18/20 12:41 Last Admin: 03/18/20 14:10 Dose: 79 ml Documented by: Loperamide HCl (Imodium) 2 mg PO Q4H PRN PRN Reason: Diarrhea Last Admin: 03/22/20 05:43 Dose: 2 mg Documented by: Nystatin (Nystatin Crm) 15 gm TOP TID [facility] Last Admin: 03/21/20 08:14 Dose: 1 applic Documented by: Nystatin (Nystop) 0 gm TOP TID PRN PRN Reason: Other Oxycodone HCl (Oxycodone) 5 mg PO Q4H PRN PRN Reason: Pain (moderate 4-6) Potassium Chloride (Klor-Con 10) 40 meq PO ONETIME ONE Stop: 03/22/20 07:25 Last Admin: 03/22/20 08:26 Dose: 40 meq Documented by: - Exam Quality Assessment: Supplemental Oxygen General: Alert, Oriented Lungs: Clear to Auscultation, Decreased Breath Sounds Cardiovascular: Regular Rate, Regular Rhythm Extremities: Normal Inspection, Normal Range of Motion, Non-Tender, No Pedal Edema, Normal Capillary Refill Sepsis Event Note - Evaluation Sepsis Screening Result: No Definite Risk - Focused Exam Vital Signs: Vital Signs Temp Pulse Pulse Resp BP BP Pulse Ox 03/23/20 08:31 70 153/93 H 03/23/20 08:00 36.6 C 93 20 153/93 H 93 L 03/23/20 03:44 36.8 C 71 20 128/69 92 L - Problem List Review Problem List Initiated/Reviewed/Updated: Yes - My Orders Last 24 Hours: My Active Orders 03/23/20 11:19 FERRITIN [CHEM] Routine 03/24/20 05:11 BASIC METABOLIC PANEL,BMP [CHEM] AM CBC W/O DIFF,HEMOGRAM [HEME] AM - Plan Plan:: #. Acute hypoxemic respiratory failure Secondary to COVID-19 pneumonia #. COVID-19 pneumonia Treated with remdesivir, Decadron and is also on intravenous antibiotics. #. Chronic diastolic congestive heart failure Bumex is on hold #. Diabetes mellitus type 2 Blood sugars elevated because of steroids #. Status post pacemaker placement Plan: Wean down oxygen as tolerated Discontinue intravenous fluids Incentive spirometry Advance the patient's diet Send sample for basic metabolic panel Send sample for complete blood count Send sample for procalcitonin level. Anticipate possible discharge in the morning.
[2020-03-23] MEDS: Melatonin 3 MG Tab PO PRN (23:30)
[2020-03-24] MEDS: Pantoprazole 40 MG Tab.CR PO SCH (05:28)
[2020-03-24 07:10] LABS: ANION GAP 11.7 mEq/L (7-13); CHLORIDE,CL 104 mmol/L (98-107); SODIUM,NA 141 mmol/L (136-145)
[2020-03-24] MEDS: Insulin Lispro 100 Units/ML 3 ML Vial SUBCUT SCH ×2 (08:34→11:48)
[2020-03-24 09:31] VITALS: BP 123/64
[2020-03-24] MEDS: Mometasone Furoate Powder 220 MCG/Puff 14 Dose Inhaler INH SCH (09:32)
[2020-03-24] MEDS: oxyCODONE ER 10 MG TAB.ER PO SCH (09:35)
[2020-03-24] MEDS: Allopurinol 300 MG Tab PO SCH (09:36)
[2020-03-24] MEDS: Multivitamins, Therapeutic with Minerals Tab PO SCH (09:36)
[2020-03-24] MEDS: Carvedilol 25 MG Tab PO SCH (09:36)
[2020-03-24] MEDS: Ascorbic Acid 500 MG Tab PO SCH (09:37)
[2020-03-24] MEDS: Aspirin 81 MG Tab.EC PO SCH (09:37)
[2020-03-24] MEDS: Dexamethasone 4 MG/ML SDV IVPUSH SCH (09:38)
[2020-03-24] MEDS: Albuterol 6.7 GM Inhaler INH SCH ×2 (09:38→13:28)
[2020-03-24] MEDS: Enoxaparin 40 MG/0.4 ML Syringe SUBCUT SCH (09:46)
[2020-03-24] MEDS: Nystatin Topical Powder 30 GM Bottle TOP SCH ×2 (09:48→13:28)
--- NOTE | 2020-03-24 11:25 | PCM.DCSUM1 ---
Discharge Summary - Hospital Course Free Text/Narrative:: Is a 74-year-old female with medical history of diabetes mellitus type 2, coronary artery disease, CHF, status post pacemaker placement who was admitted with complaint of shortness of breath and was found to be hypoxic. She tested positive for COVID-19 and was also found to have COVID-19 pneumonia. The patient was treated with remdesivir, dexamethasone and also received intravenous antibiotics. Clinically she has improved and has been weaned off from [place] pplemental oxygen. Patient will be discharged home to follow-up with primary care provider in 1 week. #. Acute hypoxemic respiratory failure Secondary to COVID-19 pneumonia #. COVID-19 pneumonia Treated with remdesivir, Decadron and is also on intravenous antibiotics. #. Chronic diastolic congestive heart failure Restarted on Bumex #. Diabetes mellitus type 2 Blood sugars elevated because of steroids #. Status post pacemaker placement Diagnosis: Stroke: No - Discharge Data Discharge Date: 03/24/20 Discharge Disposition: Home, Self-Care 01 Condition: Good - Referral to Home Health Primary Care Physician: Francisco Pereira MD - Patient Instructions Other/Special Instructions: F/up with PMD in one week - Discharge Plan Prescriptions/Med Rec: dexAMETHasone [Decadron] 6 mg PO DAILY 4 Days #4 tablet Home Medications: Home Meds Ascorbic Acid [Vitamin C] 1 tab PO DAILY 07/17/14 [History] Aspirin [Adult Low Dose Aspirin EC] 1 tab PO DAILY 07/17/14 [History] Bumetanide [Bumex] 1 mg PO DAILY 07/17/14 [History] Cetirizine [ZyrTEC] 1 tab PO DAILY 07/17/14 [History] Hydrocodone/Acetaminophen [[place] 10-325] 1 tab PO Q4H PRN 07/17/14 [History] Lidocaine 5% [Lidoderm 5%] 1 patch TOP DAILY PRN 07/17/14 [History] Multivit-Min/FA/Lycopen/Lutein [Centrum Silver Tablet] 1 tab PO DAILY 07/17/14 [History] Nitroglycerin [Nitrostat] 1 tab SL ASDIRECTED PRN 07/17/14 [History] Pantoprazole [ProTONIX] 1 tab PO DAILY 07/17/14 [History] Vitamin D 1 tab PO DAILY 07/17/14 [History] allopurinoL [Zyloprim] 1 tab PO DAILY 07/17/14 [History] carvediloL [Coreg] 12.5 mg PO BID 07/17/14 [History] metFORMIN [Glucophage] 500 mg PO BID 07/17/14 [History] oxyCODONE ER [OxyCONTIN] 10 mg PO BID 07/17/14 [History] Nystatin [Nystatin Crm] 15 gm TOP TID tube 03/15/15 [Rx] dexAMETHasone [Decadron] 6 mg PO DAILY 4 Days #4 tablet 03/24/20 [Rx] Patient Handouts: COVID-19 Frequently Asked Questions, COVID-19: How to Protect Yourself and Others - CDC, Community-Acquired Pneumonia, Adult, [id number], Prevent the Spread of COVID-19 if You Are Sick - [facility] Referrals: Collette Haro NP [Ordering Only Provider] - (post hospital appointment on SaturdayMarch 29 at 9:20am.) - Discharge Summary/Plan Comment DC Time >30 min.: No - Patient Data Vitals - Most Recent: Last Vital Signs Temp 37.1 C 03/24/20 09:31 Pulse 76 03/24/20 09:36 Resp 18 03/24/20 09:31 BP 123/64 03/24/20 09:36 Pulse Ox 96 03/24/20 09:31 Weight - Most Recent: 98.43 kg I&O - Last 24 hours: Intake & Output 03/23/20 03/24/20 03/24/20 22:59 06:59 14:59 Intake Total 240 200 Balance 240 200 Lab Results - Last 24 hrs: Laboratory Results - last 24 hr 03/23/20 03/23/20 03/23/20 Range/Units 11:19 12:30 16:54 WBC (5.0-10.0) 10^3/uL RBC (4.2-5.4) 10^6/uL Hgb (12.0-16.0) g/dL Hct (37.0-47.0) % MCV (80-100) fL MCH (27.0-34.0) pg MCHC (33.0-35.0) g/dL Plt Count (150-450) 10^3/uL Sodium (136-145) mmol/L Potassium (3.5-5.1) mmol/L Chloride (98-107) mmol/L Carbon Dioxide (21-32) mmol/L Anion Gap (7-13) mEq/L BUN (7-18) mg/dL Creatinine (0.55-1.02) mg/dL Est Cr Clr Drug Dosing mL/min Estimated GFR (MDRD) Glucose (74-99) mg/dL POC Glucose 127 H 234 H (83-110) mg/dl Calcium (8.5-10.1) mg/dL Ferritin 540 H (8-252) mg/mL 03/23/20 03/24/20 03/24/20 Range/Units 23:25 06:30 06:30 WBC 7.6 (5.0-10.0) 10^3/uL RBC 4.62 (4.2-5.4) 10^6/uL Hgb 13.5 (12.0-16.0) g/dL Hct 41.2 (37.0-47.0) % MCV 89.2 (80-100) fL MCH 29.2 (27.0-34.0) pg MCHC 32.8 L (33.0-35.0) g/dL Plt Count 190 (150-450) 10^3/uL Sodium 141 (136-145) mmol/L Potassium 3.7 (3.5-5.1) mmol/L Chloride 104 (98-107) mmol/L Carbon Dioxide 29 (21-32) mmol/L Anion Gap 11.7 (7-13) mEq/L BUN 20 H (7-18) mg/dL Creatinine 0.87 (0.55-1.02) mg/dL Est Cr Clr Drug Dosing 55.17 mL/min Estimated GFR (MDRD) > 60 Glucose 140 H (74-99) mg/dL POC Glucose 128 H (83-110) mg/dl Calcium 8.7 (8.5-10.1) mg/dL Ferritin (8-252) mg/mL 03/24/20 Range/Units 08:34 WBC (5.0-10.0) 10^3/uL RBC (4.2-5.4) 10^6/uL Hgb (12.0-16.0) g/dL Hct (37.0-47.0) % MCV (80-100) fL MCH (27.0-34.0) pg MCHC (33.0-35.0) g/dL Plt Count (150-450) 10^3/uL Sodium (136-145) mmol/L Potassium (3.5-5.1) mmol/L Chloride (98-107) mmol/L Carbon Dioxide (21-32) mmol/L Anion Gap (7-13) mEq/L BUN (7-18) mg/dL Creatinine (0.55-1.02) mg/dL Est Cr Clr Drug Dosing mL/min Estimated GFR (MDRD) Glucose (74-99) mg/dL POC Glucose 132 H (83-110) mg/dl Calcium (8.5-10.1) mg/dL Ferritin (8-252) mg/mL DEYANIRA Results - Last 24 hrs: Microbiology 03/18/20 11:39 Aerobic Blood Culture - Final Blood - Venous - Lab Draw NO GROWTH AFTER 5 DAYS Anaerobic Blood Culture - Final Med Orders - Current: Current Medications Acetaminophen (Tylenol) 650 mg PO Q4H PRN PRN Reason: Pain (Mild 1-3)/fever Last Admin: 03/20/20 13:58 Dose: 650 mg Documented by: Hydrocodone Bitart/Acetaminophen ([place] 325-10 Mg) 1 tab PO Q4H PRN PRN Reason: Pain Last Admin: 03/22/20 22:44 Dose: 1 tab Documented by: Albuterol (Proventil Hfa) 0 gm INH QID [facility] Last Admin: 03/24/20 09:38 Dose: 2 puff Documented by: Allopurinol (Zyloprim) 300 mg PO DAILY [facility] Last Admin: 03/24/20 09:36 Dose: 300 mg Documented by: Ascorbic Acid (Vitamin C) 500 mg PO DAILY [facility] Last Admin: 03/24/20 09:37 Dose: 500 mg Documented by: Aspirin (Halfprin) 81 mg PO DAILY [facility] Last Admin: 03/24/20 09:37 Dose: 81 mg Documented by: Carvedilol (Coreg) 25 mg PO BIDMEALS [facility] Last Admin: 03/24/20 09:36 Dose: 25 mg Documented by: Dexamethasone (Decadron) 6 mg IVPUSH DAILY [facility] Stop: 03/27/20 09:01 Last Admin: 03/24/20 09:38 Dose: 6 mg Documented by: Dextrose/Water (Dextrose 50% In Water) 50 ml IV ASDIRECTED PRN PRN Reason: Hypoglycemia Diphenoxylate HCl/Atropine (Lomotil 0.025-2.5 Mg) 1 tab PO QID PRN PRN Reason: Diarrhea Last Admin: 03/22/20 10:02 Dose: 1 tab Documented by: Docusate Sodium (Colace) 100 mg PO BID PRN PRN Reason: Constipation Enoxaparin Sodium (Lovenox) 40 mg SUBCUT DAILY [facility] Last Admin: 03/24/20 09:46 Dose: 40 mg Documented by: Glucagon (Glucagen) 1 mg IM ASDIRECTED PRN PRN Reason: Hypoglycemia Sodium Chloride (Normal Saline) 1,000 mls @ 75 mls/hr IV ASDIRECTED [facility] Last Infusion: 03/23/20 10:39 Dose: 75 mls/hr Documented by: Insulin Human Lispro (Humalog) 0 unit SUBCUT WITHMEALSANDBED [facility]; Protocol Last Admin: 03/24/20 08:34 Dose: Not Given Documented by: Lidocaine (Lidoderm 5%) 700 mg TOP DAILY PRN PRN Reason: Pain Melatonin (Melatonin) 9 mg PO BEDTIME PRN PRN Reason: Sleep Last Admin: 03/23/20 23:30 Dose: 9 mg Documented by: Mometasone Furoate (Asmanex 220 Mcg) 2 puff INH BIDRT [facility] Last Admin: 03/24/20 09:32 Dose: 2 puff Documented by: Multivitamins/Minerals (Vitamins And Minerals) 1 tab PO DAILY [facility] Last Admin: 03/24/20 09:36 Dose: 1 tab Documented by: Nitroglycerin (Nitrostat) 0.4 mg SL ASDIRECTED PRN PRN Reason: Chest Pain Nystatin (Nystop) 0 gm TOP TID [facility] Last Admin: 03/24/20 09:48 Dose: 1 applic Documented by: Ondansetron HCl (Zofran Odt) 4 mg PO Q4H PRN PRN Reason: nausea, able to take PO Last Admin: 03/22/20 03:12 Dose: 4 mg Documented by: Oxycodone HCl (Oxycontin) 10 mg PO BID [facility] Last Admin: 03/24/20 09:35 Dose: 10 mg Documented by: Pantoprazole Sodium (Protonix) 40 mg PO ACBRK [facility] Last Admin: 03/24/20 05:28 Dose: 40 mg Documented by: Sodium Chloride (Saline Flush) 10 ml FLUSH ASDIRECTED PRN PRN Reason: Keep Vein Open Last Admin: 03/21/20 08:13 Dose: 10 ml Documented by: Discontinued Medications Bumetanide (Bumex) 1 mg PO DAILY [facility] Last Admin: 03/19/20 09:51 Dose: 1 mg Documented by: Carvedilol (Coreg) 12.5 mg PO BID [facility] Last Admin: 03/20/20 08:24 Dose: 12.5 mg Documented by: Carvedilol (Coreg) 25 mg PO BID [facility] Last Admin: 03/20/20 21:50 Dose: 12.5 mg Documented by: Remdesivir 200 mg/ Sodium (Chloride) 210 mls @ 210 mls/hr IV ONETIME ONE Stop: 03/18/20 16:59 Last Admin: 03/18/20 16:40 Dose: 210 mls/hr Documented by: Remdesivir 100 mg/ Sodium (Chloride) 100 mls @ 100 mls/hr IV Q24H [facility] Stop: 03/22/20 09:59 Last Admin: 03/22/20 08:37 Dose: 100 mls/hr Documented by: Piperacillin Sod/Tazobactam (Sod 3.375 gm/ Sodium Chloride) 100 mls @ 200 mls/hr IV Q6HR [facility] Last Infusion: 03/21/20 06:39 Dose: Infused Documented by: Sodium Chloride (Normal Saline) 1,000 mls @ 125 mls/hr IV ASDIRECTED [facility] Stop: 03/21/20 17:44 Last Admin: 03/21/20 10:18 Dose: 125 mls/hr Documented by: Iopamidol (Isovue-370 (76%)) 100 ml IVPUSH ONETIME ONE Stop: 03/18/20 12:41 Last Admin: 03/18/20 14:10 Dose: 79 ml Documented by: Loperamide HCl (Imodium) 2 mg PO Q4H PRN PRN Reason: Diarrhea Last Admin: 03/22/20 05:43 Dose: 2 mg Documented by: Nystatin (Nystatin Crm) 15 gm TOP TID [facility] Last Admin: 03/21/20 08:14 Dose: 1 applic Documented by: Nystatin (Nystop) 0 gm TOP TID PRN PRN Reason: Other Oxycodone HCl (Oxycodone) 5 mg PO Q4H PRN PRN Reason: Pain (moderate 4-6) Potassium Chloride (Klor-Con 10) 40 meq PO ONETIME ONE Stop: 03/22/20 07:25 Last Admin: 03/22/20 08:26 Dose: 40 meq Documented by:
[2020-03-24 12:04] VITALS: PULSE 78
== END 2020-03-24 14:45 | disposition home or self-care (01) | DRG 177 ==
LOC: DL.ED 10:27 → UNDOADMIN 14:48 → DL.MS 14:48 → DL.ED 14:49 → DL.MS 15:07
PROVIDERS: ADMIT Internal Medicine; ATTEND Hospitalist
PROC: 8E0ZXY6 Isolation (ICD-10-PCS; principal; 2020-03-18)
PROC: XW033E5 Introduction of Remdesivir Anti-infective into Peripheral Vein, Percutaneous Approach, New Technology Group 5 (ICD-10-PCS; 2020-03-18)
DX: U07.1 COVID-19 (principal); J12.89 Other viral pneumonia; R09.02 Hypoxemia; R79.89 Other specified abnormal findings of blood chemistry; H54.7 Unspecified visual loss; E78.00 Pure hypercholesterolemia, unspecified; I10 Essential (primary) hypertension; I25.2 Old myocardial infarction; J96.01 Acute respiratory failure with hypoxia; E11.9 Type 2 diabetes mellitus without complications; K80.20 Calculus of gallbladder without cholecystitis without obstruction; I50.32 Chronic diastolic (congestive) heart failure; Z88.7 Allergy status to serum and vaccine; I25.10 Atherosclerotic heart disease of native coronary artery without angina pectoris; Z79.84 Long term (current) use of oral hypoglycemic drugs; E78.5 Hyperlipidemia, unspecified; Z95.0 Presence of cardiac pacemaker; Z99.81 Dependence on supplemental oxygen; Z79.82 Long term (current) use of aspirin; Z79.899 Other long term (current) drug therapy; Z88.1 Allergy status to other antibiotic agents; Z88.8 Allergy status to other drugs, medicaments and biological substances; Z91.040 Latex allergy status
CPT/HCPCS: 36415; 71045; 71260; 80048; 80053; 80076; 82248; 82728; 82962; 83605; 83880; 84145; 84484; 85025; 85027; 85379; 86140; 87040; 93005; 99222; 99232; 99238; 99284; 99285-25; A9270-GY; J1100; J1650; J1815-GY; J2543; J7030; J7050; Q9967

== ENCOUNTER 2022-10-29 21:49 | Emergency (ER) | payer MEDICARE, OTHER ==
[2022-10-29] MEDS ORDERED: cloNIDine 0.1 MG Tab PO ONE ×2 (22:18→22:51)
[2022-10-29 22:23] VITALS: PULSE 95
[2022-10-29 22:57] VITALS: BP 173/89
== END 2022-10-29 23:13 | disposition home or self-care (01) ==
LOC: DL.ED 21:49
DX: I10 Essential (primary) hypertension (principal); H11.31 Conjunctival hemorrhage, right eye; I25.2 Old myocardial infarction; M10.9 Gout, unspecified; E11.9 Type 2 diabetes mellitus without complications; E66.9 Obesity, unspecified; Z68.41 Body mass index [BMI] 40.0-44.9, adult; Z86.16 Personal history of COVID-19; Z88.1 Allergy status to other antibiotic agents; Z88.8 Allergy status to other drugs, medicaments and biological substances; Z88.5 Allergy status to narcotic agent; Z88.7 Allergy status to serum and vaccine; Z79.82 Long term (current) use of aspirin; Z79.899 Other long term (current) drug therapy
CPT/HCPCS: 99283; A9270-GY

== ENCOUNTER 2023-09-20 13:29 | Emergency (ER) | payer MEDICARE, OTHER ==
[2023-09-20] MEDS ORDERED: Sodium Chloride 0.9% 10 ML Syringe FLUSH PRN (13:44)
[2023-09-20] MEDS ORDERED: Sodium Chloride 0.9% 1,000 ML IV ONE (13:50)
[2023-09-20 14:04] VITALS: BP 105/50; PULSE 80
[2023-09-20] MEDS: Sodium Chloride 0.9% 500 ML IV SCH (14:04)
[2023-09-20 14:07] LABS: BASOPHILS PERCENT AUTO 0.3 % (0.0-1.0); EOSINOPHILS PERCENT AUTO 0.3 % (1.0-3.0); HEMATOCRIT 40.5 % (37.0-47.0); HEMOGLOBIN 12.2 g/dL (12.0-16.0); LYMPHOCYTES PERCENT AUTO 21.4 % (20.5-50.1); MEAN CORPUSCULAR HEMOGLOBIN 28.4 pg (27.0-34.0); MEAN CORPUSCULAR HGB CONC 30.1 g/dL (33.0-35.0); MEAN CORPUSCULAR VOLUME 94.2 fL (80-100); MONOCYTES PERCENT AUTO 14.5 % (2-8); NEUTROPHILS PERCENT AUTO 63.5 % (42.2-75.2); PLATELET COUNT,PLT 162 10^3/uL (150-450); WHITE BLOOD CELL COUNT,WBC 7.3 10^3/uL (5.0-10.0)
[2023-09-20 14:30] LABS: LACTIC ACID 1.2 mmol/L (0.4-2.0)
[2023-09-20 14:36] LABS: A/G RATIO 0.9; ALBUMIN 2.8 g/dL (3.4-5.0); ANION GAP 15.3 mEq/L (7-13); BILIRUBIN TOTAL 0.4 mg/dL (0.2-1.0); BUN/CREATININE RATIO 21.2 (No establ ref range); CALCIUM 8.5 mg/dL (8.5-10.1); CREATININE 1.84 mg/dL (0.55-1.02); EST CRCL DRUG DOSING (CG) 18.39 mL/min; MAGNESIUM 1.9 mg/dL (1.8-2.4); POTASSIUM,K 4.3 mmol/L (3.5-5.1); PROTEIN TOTAL,TP 5.9 g/dL (6.4-8.2); TSH ULTRASENSITIVE 1.73 uIU/mL (0.36-3.74)
[2023-09-20 14:44] LABS: INR 1.2 (0.9-1.2); PROTHROMBIN TIME 12.3 SEC (9.0-12.0); PTT,PARTIAL THROMBOPLSTIN TIME 30.5 SEC (22.0-34.0)
[2023-09-20] MEDS: Aspirin 81 MG Tab.Chew PO ONE (15:41)
[2023-09-20 16:48] LABS: APPEARANCE,URINE CLOUDY (CLEAR); BILIRUBIN,URINE SMALL (NEGATIVE); COLOR,URINE YELLOW (YELLOW); GLUCOSE,URINE NEGATIVE (NEGATIVE); KETONES,URINE NEGATIVE (NEGATIVE); LEUKOCYTE ESTERASE,URINE SMALL (NEGATIVE); NITRITE,URINE POSITIVE (NEGATIVE); OCCULT BLOOD,URINE TRACE-INTACT (NEGATIVE); PH,URINE 5.5 (5.0-9.0); PROTEIN,URINE 100 (NEGATIVE); UROBILINOGEN,URINE 0.2 mg/dL (0.2-1.0)
[2023-09-20 17:02] LABS: BACTERIA,URINE MANY /HPF (0-FEW/HPF); EPITHELIAL CELLS,URINE FEW /HPF (NOT SEEN); MUCUS,URINE OCCASIONAL /LPF (NOT SEEN); RBC,URINE 0-5 /HPF (0-5); WBC,URINE >100 /HPF (0-5/HPF)
[2023-09-20] MEDS: Heparin Sodium 5,000 Units/ML Vial IVPUSH ONE (18:22)
[2023-09-20] MEDS: Heparin Sodium/0.45% NaCl 25,000 UNITS/500 ML BAG IV SCH (18:24)
== END 2023-09-20 19:33 ==
LOC: DL.ED 13:29
DX: I21.4 Non-ST elevation (NSTEMI) myocardial infarction (principal); N17.9 Acute kidney failure, unspecified; E86.0 Dehydration; I10 Essential (primary) hypertension; I25.2 Old myocardial infarction; E78.00 Pure hypercholesterolemia, unspecified; K21.9 Gastro-esophageal reflux disease without esophagitis; Z95.0 Presence of cardiac pacemaker; E11.9 Type 2 diabetes mellitus without complications; Z88.1 Allergy status to other antibiotic agents; Z88.8 Allergy status to other drugs, medicaments and biological substances; Z88.5 Allergy status to narcotic agent; Z88.7 Allergy status to serum and vaccine; Z79.82 Long term (current) use of aspirin; Z79.899 Other long term (current) drug therapy; Z79.84 Long term (current) use of oral hypoglycemic drugs; Z86.16 Personal history of COVID-19; Z90.49 Acquired absence of other specified parts of digestive tract
CPT/HCPCS: 36415; 51702; 70450; 71045; 72125; 80053; 81001; 82550; 83605; 83690; 83735; 83880; 84145; 84443; 84484; 85025; 85379; 85610; 85730; 87040; 87086; 87088; 87186; 93005; 93010; 93970; 96374; 96375; 99285; 99285-25; A9270-GY; J1644; J3490; J7040

== ENCOUNTER 2023-09-24 08:42 | Inpatient (IN) | payer MEDICARE, OTHER ==
[2023-09-24] MEDS ORDERED: Nystatin Crm 15 GM Tube TOP PRN (15:28)
[2023-09-24] MEDS ORDERED: Fluticasone NASAL Spray 16 GM Bottle NASBOTH PRN (15:28)
[2023-09-24] MEDS ORDERED: Nitroglycerin 0.4 MG Tab.SL SL PRN (15:28)
[2023-09-24] MEDS ORDERED: Albuterol/Ipratropium 3.0-0.5 MG/3 ML Neb Soln NEB PRN (15:39)
[2023-09-24] MEDS ORDERED: Magnesium Hydroxide 400 MG/5 ML Susp 30 ML Cup PO PRN (15:39)
[2023-09-24] MEDS ORDERED: Ondansetron 4 MG Tab.DIS PO PRN (15:39)
[2023-09-24] MEDS ORDERED: Polyethylene Glycol 3350 Powder 17 GM Packet PO PRN (15:39)
[2023-09-24] MEDS ORDERED: Loratadine 10 MG Tab PO PRN (15:48)
[2023-09-24] MEDS: Acetaminophen/HYDROcodone 325-10 MG Tab PO PRN (20:30)
[2023-09-24] MEDS: Carvedilol 6.25 MG Tab PO SCH (21:00)
[2023-09-24] MEDS: Carvedilol 25 MG Tab PO SCH (21:00)
[2023-09-24] MEDS: oxyCODONE ER 10 MG TAB.ER PO SCH (21:48)
[2023-09-24] MEDS: Apixaban 5 MG Tab PO SCH (21:48)
[2023-09-24] MEDS: Nystatin Topical Powder 60 GM Bottle TOP SCH (21:48)
[2023-09-24] MEDS: diphenhydrAMINE 25 MG Tab PO PRN (21:50)
[2023-09-25 07:46] LABS: HEMATOCRIT 40.3 % (37.0-47.0); HEMOGLOBIN 12.7 g/dL (12.0-16.0); MEAN CORPUSCULAR HEMOGLOBIN 28.3 pg (27.0-34.0); MEAN CORPUSCULAR HGB CONC 31.5 g/dL (33.0-35.0); PLATELET COUNT,PLT 155 10^3/uL (150-450); RED BLOOD CELL COUNT 4.48 10^6/uL (4.2-5.4); WHITE BLOOD CELL COUNT,WBC 7.9 10^3/uL (5.0-10.0)
[2023-09-25 07:47] LABS: BASOPHILS PERCENT AUTO 0.3 % (0.0-1.0); EOSINOPHILS PERCENT AUTO 2.3 % (1.0-3.0); LYMPHOCYTES PERCENT AUTO 28.1 % (20.5-50.1); MONOCYTES PERCENT AUTO 10.4 % (2-8); NEUTROPHILS PERCENT AUTO 58.9 % (42.2-75.2)
[2023-09-25 08:09] LABS: A/G RATIO 0.82; ALBUMIN 2.8 g/dL (3.4-5.0); BILIRUBIN TOTAL 0.6 mg/dL (0.2-1.0); BUN/CREATININE RATIO 19.4 (No establ ref range); CALCIUM 9.5 mg/dL (8.5-10.1); CREATININE 0.67 mg/dL (0.55-1.02); EST CRCL DRUG DOSING (CG) 50.51 mL/min; MAGNESIUM 1.7 mg/dL (1.8-2.4); PROTEIN TOTAL,TP 6.2 g/dL (6.4-8.2)
[2023-09-25 08:12] LABS: T4 FREE 1.21 ng/dL (0.76-1.46); TSH ULTRASENSITIVE 2.43 uIU/mL (0.36-3.74)
[2023-09-25 09:03] LABS: EOSINOPHILS PERCENT MAN 1 % (1-3); LYMPHOCYTES PERCENT MAN 24 % (20-50); MONOCYTES PERCENT MAN 10 % (2-8); SEG NEUTROPHILS PERCENT MAN 65 % (42-75)
[2023-09-25] MEDS: Allopurinol 300 MG Tab PO SCH (09:32)
[2023-09-25] MEDS: Tolterodine 2 MG Cap.ER PO SCH (09:32)
[2023-09-25] MEDS: Sertraline 50 MG Tab PO SCH (09:32)
[2023-09-25] MEDS: Ascorbic Acid 500 MG Tab PO SCH (09:32)
[2023-09-25] MEDS: Cholecalciferol (Vitamin D3) 25 MCG Tab PO SCH (09:32)
[2023-09-25] MEDS: Ciprofloxacin 500 MG Tab PO SCH (09:34)
[2023-09-25] MEDS: Pantoprazole 40 MG Tab.CR PO SCH (09:34)
[2023-09-25] MEDS: Multivitamin Tab PO SCH (09:34)
[2023-09-25] MEDS: Lutein/Minerals/Vit A,C & E Tab PO SCH (09:35)
[2023-09-25] MEDS: Magnesium Oxide 400 MG Tab PO SCH (09:35)
[2023-09-26] MEDS: Lidocaine 5% 700 MG Patch TOP PRN (09:05)
[2023-09-26] MEDS: Non-Formulary Medication 1 Each (Trospium [Sanctura] 20 MG Tablet) PO SCH (18:03)
[2023-09-26] MEDS: Sennosides/Docusate Sodium 50-8.6 MG Tab PO PRN (21:15)
[2023-09-29] MEDS: Pantoprazole 40 MG Tab.CR PO SCH (05:51)
[2023-09-29] MEDS: Acetaminophen 325 MG Tab PO PRN (21:25)
[2023-09-30 07:25] VITALS: PULSE 78
[2023-09-30 08:08] VITALS: BP 161/85
== END 2023-09-30 14:00 | disposition home health service (06) | DRG 948 ==
LOC: DL.MS 13:29
PROVIDERS: ADMIT Internal Medicine; ATTEND Internal Medicine
DX: R53.1 Weakness (principal); I42.9 Cardiomyopathy, unspecified; Z68.41 Body mass index [BMI] 40.0-44.9, adult; E78.5 Hyperlipidemia, unspecified; I25.10 Atherosclerotic heart disease of native coronary artery without angina pectoris; N18.30 Chronic kidney disease, stage 3 unspecified; E11.22 Type 2 diabetes mellitus with diabetic chronic kidney disease; I12.9 Hypertensive chronic kidney disease with stage 1 through stage 4 chronic kidney disease, or unspecified chronic kidney disease; Z66 Do not resuscitate; K21.9 Gastro-esophageal reflux disease without esophagitis; F32.A Depression, unspecified; M10.9 Gout, unspecified; M51.16 Intervertebral disc disorders with radiculopathy, lumbar region; Z96.651 Presence of right artificial knee joint; M17.12 Unilateral primary osteoarthritis, left knee; R26.9 Unspecified abnormalities of gait and mobility; E66.01 Morbid (severe) obesity due to excess calories; Z95.5 Presence of coronary angioplasty implant and graft; I25.2 Old myocardial infarction; Z95.810 Presence of automatic (implantable) cardiac defibrillator; Z86.711 Personal history of pulmonary embolism; Z86.718 Personal history of other venous thrombosis and embolism; Z79.01 Long term (current) use of anticoagulants; Z86.16 Personal history of COVID-19; Z88.1 Allergy status to other antibiotic agents; Z88.5 Allergy status to narcotic agent; Z88.8 Allergy status to other drugs, medicaments and biological substances; Z88.7 Allergy status to serum and vaccine; Z79.2 Long term (current) use of antibiotics; Z79.899 Other long term (current) drug therapy; Z98.49 Cataract extraction status, unspecified eye; Z90.49 Acquired absence of other specified parts of digestive tract
CPT/HCPCS: 36415; 80053; 82306; 83735; 84439; 84443; 85025; 97110-GP; 97116-GP; 97161-GP; 97165-GO; 97530-GP; A9270-GY; J3490

== ENCOUNTER 2024-06-20 13:11 | Emergency (ER) | payer MEDICARE, OTHER ==
[2024-06-20 13:26] LABS: BASOPHILS PERCENT AUTO 0.3 % (0.0-1.0); EOSINOPHILS PERCENT AUTO 0.8 % (1.0-3.0); HEMATOCRIT 39.8 % (37.0-47.0); HEMOGLOBIN 12.3 g/dL (12.0-16.0); MEAN CORPUSCULAR HEMOGLOBIN 29.4 pg (27.0-34.0); MEAN CORPUSCULAR HGB CONC 30.9 g/dL (33.0-35.0); MONOCYTES PERCENT AUTO 12.5 % (2-8); NEUTROPHILS PERCENT AUTO 67.4 % (42.2-75.2); PLATELET COUNT,PLT 150 10^3/uL (150-450); RED BLOOD CELL COUNT 4.19 10^6/uL (4.2-5.4); WHITE BLOOD CELL COUNT,WBC 7.8 10^3/uL (5.0-10.0)
[2024-06-20 13:45] LABS: ALANINE AMINOTRANSFERASE,ALT 21 U/L (14-59); ALBUMIN 3.2 g/dL (3.4-5.0); ALKALINE PHOSPHATASE 84 U/L (46-116); ANION GAP 12.8 mEq/L (7-13); ASPARTATE AMNIOTRANSFERASE,AST 23 U/L (15-37); BILIRUBIN TOTAL 0.4 mg/dL (0.2-1.0); BLOOD UREA NITROGEN,BUN 29 mg/dL (7-18); C-REACTIVE PROTEIN 2.24 ng/dL (<=0.50); CARBON DIOXIDE,CO2 31 mmol/L (21-32); CHLORIDE,CL 103 mmol/L (98-107); CREATININE 1.71 mg/dL (0.55-1.02); GLUCOSE RANDOM 128 mg/dL (70-99); LACTIC ACID 1.1 mmol/L (0.4-2.0); MAGNESIUM 2.1 mg/dL (1.8-2.4); POTASSIUM,K 4.8 mmol/L (3.5-5.1); PROTEIN TOTAL,TP 6.8 g/dL (6.4-8.2); SODIUM,NA 142 mmol/L (136-145)
[2024-06-20 13:47] LABS: A/G RATIO 0.89; B-TYPE NATRIURETIC PEPTIDE,BNP 148 pg/ml (0-100); ESTIMATED GFR 30 mL/min (>=60)
[2024-06-20] MEDS: Aspirin 81 MG Tab.Chew PO ONE (14:02)
[2024-06-20 14:44] LABS: INR 1.2 (0.9-1.2); PROTHROMBIN TIME 12.2 SEC (9.0-12.0)
[2024-06-20 14:56] VITALS: BP 114/62; PULSE 88
[2024-06-20] MEDS: Albuterol/Ipratropium 3.0-0.5 MG/3 ML Neb Soln NEB ONE (16:35)
[2024-06-20] MEDS: Sodium Chloride 0.9% 500 ML IV SCH (17:00)
== END 2024-06-20 18:40 ==
LOC: DL.ED 13:11
DX: J18.9 Pneumonia, unspecified organism (principal); I12.9 Hypertensive chronic kidney disease with stage 1 through stage 4 chronic kidney disease, or unspecified chronic kidney disease; N18.9 Chronic kidney disease, unspecified; E11.22 Type 2 diabetes mellitus with diabetic chronic kidney disease; I25.10 Atherosclerotic heart disease of native coronary artery without angina pectoris; E78.5 Hyperlipidemia, unspecified; E66.9 Obesity, unspecified; Z90.49 Acquired absence of other specified parts of digestive tract; Z79.899 Other long term (current) drug therapy; Z79.01 Long term (current) use of anticoagulants; Z79.84 Long term (current) use of oral hypoglycemic drugs; Z88.1 Allergy status to other antibiotic agents; Z88.8 Allergy status to other drugs, medicaments and biological substances; Z88.5 Allergy status to narcotic agent; Z88.6 Allergy status to analgesic agent; Z88.7 Allergy status to serum and vaccine; Z68.41 Body mass index [BMI] 40.0-44.9, adult
CPT/HCPCS: 36415; 71045; 80053; 83605; 83735; 83880; 84484; 85025; 85610; 86140; 87040; 87428; 93005; 94640; 99285; A9270; J7040; 87077; 87186; 93010; 99284

== ENCOUNTER 2024-06-25 14:48 | Inpatient (IN) | payer MEDICARE, OTHER ==
[2024-06-26] MEDS ORDERED: Polyethylene Glycol 3350 Powder 17 GM Packet PO PRN (18:21)
[2024-06-26] MEDS ORDERED: Albuterol/Ipratropium 3.0-0.5 MG/3 ML Neb Soln NEB PRN (18:21)
[2024-06-26] MEDS ORDERED: Sennosides/Docusate Sodium 50-8.6 MG Tab PO PRN (18:21)
[2024-06-26] MEDS ORDERED: Docusate Sodium 100 MG Cap PO PRN (18:21)
[2024-06-26] MEDS ORDERED: Nystatin Crm 15 GM Tube TOP PRN (18:33)
[2024-06-26] MEDS ORDERED: Loratadine 10 MG Tab PO PRN (18:33)
[2024-06-26] MEDS ORDERED: Lidocaine 5% 700 MG Patch TOP PRN (18:33)
[2024-06-26] MEDS ORDERED: Fluticasone NASAL Spray 16 GM Bottle NASBOTH PRN (18:33)
[2024-06-26 18:40] LABS: HEMATOCRIT 41.1 % (37.0-47.0); MEAN CORPUSCULAR HEMOGLOBIN 28.8 pg (27.0-34.0); MEAN CORPUSCULAR HGB CONC 31.6 g/dL (33.0-35.0); MEAN CORPUSCULAR VOLUME 91.1 fL (80-100); PLATELET COUNT,PLT 164 10^3/uL (150-450); RED BLOOD CELL COUNT 4.51 10^6/uL (4.2-5.4); WHITE BLOOD CELL COUNT,WBC 6.1 10^3/uL (5.0-10.0)
[2024-06-26 18:45] LABS: BASOPHILS PERCENT AUTO 0.2 % (0.0-1.0); LYMPHOCYTES PERCENT AUTO 27.1 % (20.5-50.1); MONOCYTES PERCENT AUTO 9.5 % (2-8); NEUTROPHILS PERCENT AUTO 61.2 % (42.2-75.2)
[2024-06-26 19:01] LABS: A/G RATIO 0.69; ALBUMIN 2.9 g/dL (3.4-5.0); ANION GAP 8.2 mEq/L (7-13); BILIRUBIN TOTAL 0.5 mg/dL (0.2-1.0); BUN/CREATININE RATIO 13.9 (No establ ref range); CALCIUM 9.7 mg/dL (8.5-10.1); CREATININE 1.15 mg/dL (0.55-1.02); EST CRCL DRUG DOSING (CG) 28.96 mL/min; INR 1.2 (0.9-1.2); MAGNESIUM 2.1 mg/dL (1.8-2.4); POTASSIUM,K 4.2 mmol/L (3.5-5.1); PROTEIN TOTAL,TP 7.1 g/dL (6.4-8.2); PROTHROMBIN TIME 12.3 SEC (9.0-12.0); PTT,PARTIAL THROMBOPLSTIN TIME 28.4 SEC (22.0-34.0)
[2024-06-26 19:07] LABS: EOSINOPHILS PERCENT MAN 2 % (1-3); LYMPHOCYTES % ATYPICAL MANUAL 6 %; LYMPHOCYTES PERCENT MAN 20 % (20-50); MONOCYTES PERCENT MAN 9 % (2-8); SEG NEUTROPHILS PERCENT MAN 63 % (42-75)
[2024-06-26] MEDS: oxyCODONE ER 10 MG TAB.ER PO SCH (19:47)
[2024-06-26] MEDS: Carvedilol 6.25 MG Tab PO SCH (19:50)
[2024-06-26] MEDS: Apixaban 5 MG Tab PO SCH (19:51)
[2024-06-26] MEDS: Carvedilol 25 MG Tab PO SCH (19:51)
[2024-06-26] MEDS: Magnesium Oxide 400 MG Tab PO SCH (19:51)
[2024-06-26] MEDS: Carboxymethylcellulose Sodium 1% Ophth Gel 0.4 ML UD EYEBOTH SCH (19:52)
[2024-06-26 21:13] LABS: HEMOGLOBIN A1C 5.9 % (<5.7)
[2024-06-26] MEDS: guaiFENesin 600 MG Tab.ER PO SCH (21:16)
[2024-06-26] MEDS: Melatonin 3 MG Tab PO PRN (21:19)
[2024-06-27] MEDS: Sertraline 50 MG Tab PO SCH (08:27)
[2024-06-27] MEDS: Tolterodine 2 MG Cap.ER PO SCH (08:27)
[2024-06-27] MEDS: Allopurinol 300 MG Tab PO SCH (08:27)
[2024-06-27] MEDS: Ascorbic Acid 500 MG Tab PO SCH (08:27)
[2024-06-27] MEDS: Aspirin 81 MG Tab.Chew PO SCH (08:27)
[2024-06-27] MEDS: Calcitriol 0.25 MCG Cap PO SCH (08:27)
[2024-06-27] MEDS: Multivitamin Tab PO SCH (08:27)
[2024-06-27] MEDS: Cholecalciferol (Vitamin D3) 25 MCG Tab PO SCH (08:27)
[2024-06-27] MEDS: Pantoprazole 40 MG Tab.CR PO SCH (08:28)
[2024-06-27] MEDS ORDERED: Loperamide 2 MG Cap PO PRN (14:13)
[2024-06-27] MEDS: Lutein/Minerals/Vit A,C & E Tab PO SCH (15:51)
[2024-06-27] MEDS: Spironolactone 25 MG Tab PO SCH (15:52)
[2024-06-27] MEDS: Empagliflozin 10 MG Tab PO SCH (15:52)
[2024-06-27] MEDS: Levofloxacin 250 MG Tab PO SCH (15:52)
[2024-06-27 19:33] LABS: APPEARANCE,URINE CLEAR (CLEAR); BILIRUBIN,URINE NEGATIVE (NEGATIVE); COLOR,URINE YELLOW (YELLOW); GLUCOSE,URINE 500 (NEGATIVE); KETONES,URINE NEGATIVE (NEGATIVE); LEUKOCYTE ESTERASE,URINE SMALL (NEGATIVE); NITRITE,URINE NEGATIVE (NEGATIVE); OCCULT BLOOD,URINE NEGATIVE (NEGATIVE); PH,URINE 7.5 (5.0-9.0); PROTEIN,URINE NEGATIVE (NEGATIVE); UROBILINOGEN,URINE 0.2 mg/dL (0.2-1.0)
[2024-06-27 19:49] LABS: BACTERIA,URINE FEW /HPF (0-FEW/HPF); EPITHELIAL CELLS,URINE MODERATE /HPF (NOT SEEN); MUCUS,URINE FEW /LPF (NOT SEEN); RBC,URINE 0-5 /HPF (0-5); WBC,URINE 20-30 /HPF (0-5/HPF); YEAST,URINE FEW /HPF (NOT SEEN)
[2024-06-27] MEDS: Acetaminophen 500 MG Tab PO PRN (20:45)
[2024-06-27] MEDS: diphenhydrAMINE 25 MG Tab PO PRN (20:48)
[2024-06-29 06:50] LABS: BASOPHILS PERCENT AUTO 0.4 % (0.0-1.0); EOSINOPHILS PERCENT AUTO 3.7 % (1.0-3.0); HEMOGLOBIN 12.5 g/dL (12.0-16.0); LYMPHOCYTES PERCENT AUTO 32.5 % (20.5-50.1); MEAN CORPUSCULAR HEMOGLOBIN 29.2 pg (27.0-34.0); MEAN CORPUSCULAR HGB CONC 32.1 g/dL (33.0-35.0); MEAN CORPUSCULAR VOLUME 91.1 fL (80-100); MONOCYTES PERCENT AUTO 12.2 % (2-8); NEUTROPHILS PERCENT AUTO 51.2 % (42.2-75.2); PLATELET COUNT,PLT 199 10^3/uL (150-450); RED BLOOD CELL COUNT 4.28 10^6/uL (4.2-5.4); WHITE BLOOD CELL COUNT,WBC 7.6 10^3/uL (5.0-10.0)
[2024-06-29 07:17] LABS: ANION GAP 11.1 mEq/L (7-13); CALCIUM 9.6 mg/dL (8.5-10.1); CREATININE 1.18 mg/dL (0.55-1.02); EST CRCL DRUG DOSING (CG) 28.22 mL/min; MAGNESIUM 2.2 mg/dL (1.8-2.4); POTASSIUM,K 4.1 mmol/L (3.5-5.1)
[2024-06-29] MEDS ORDERED: Bumetanide 1 MG Tab PO PRN (10:12)
[2024-06-29] MEDS: Lidocaine 5% 700 MG Patch TOP ONE (11:47)
[2024-06-29] MEDS: Clindamycin HCl 150 MG Cap PO SCH (11:47)
[2024-06-29] MEDS: Benzonatate 100 MG Cap PO PRN (13:46)
[2024-06-29] MEDS: Calcium Carbonate 500 MG Tab.Chew PO PRN (20:56)
[2024-06-29] MEDS ORDERED: Enalapril 5 MG Tab PO SCH (21:00)
[2024-06-29] MEDS: Melatonin 3 MG Tab PO PRN (21:00)
[2024-06-29] MEDS: Mupirocin Oint 22 GM Tube TOP SCH (21:02)
[2024-06-29] MEDS: Ondansetron 4 MG Tab.DIS PO PRN (21:07)
[2024-06-30] MEDS: Lidocaine 5% 700 MG Patch TOP SCH (10:15)
[2024-06-30] MEDS: Bumetanide 1 MG Tab PO ONE (12:34)
[2024-06-30] MEDS: metroNIDAZOLE 250 MG Tab PO SCH (12:44)
[2024-06-30] MEDS ORDERED: metroNIDAZOLE 250 MG Tab PO SCH (14:00)
[2024-06-30] MEDS ORDERED: Metoclopramide 10 MG Tab PO PRN (19:32)
[2024-06-30] MEDS: Metoclopramide 10 MG Tab PO PRN (20:17)
[2024-07-01] MEDS: Pantoprazole 40 MG Tab.CR PO SCH (05:56)
[2024-07-01 06:12] LABS: BASOPHILS PERCENT AUTO 0.1 % (0.0-1.0); EOSINOPHILS PERCENT AUTO 2.2 % (1.0-3.0); HEMATOCRIT 37.5 % (37.0-47.0); HEMOGLOBIN 11.7 g/dL (12.0-16.0); LYMPHOCYTES PERCENT AUTO 15.5 % (20.5-50.1); MEAN CORPUSCULAR HEMOGLOBIN 28.7 pg (27.0-34.0); MEAN CORPUSCULAR HGB CONC 31.2 g/dL (33.0-35.0); MEAN CORPUSCULAR VOLUME 92.1 fL (80-100); MONOCYTES PERCENT AUTO 11.1 % (2-8); NEUTROPHILS PERCENT AUTO 71.1 % (42.2-75.2); PLATELET COUNT,PLT 207 10^3/uL (150-450); RED BLOOD CELL COUNT 4.07 10^6/uL (4.2-5.4); WHITE BLOOD CELL COUNT,WBC 9.9 10^3/uL (5.0-10.0)
[2024-07-01 06:25] LABS: ANION GAP 8.3 mEq/L (7-13); CALCIUM 9.2 mg/dL (8.5-10.1); CREATININE 1.38 mg/dL (0.55-1.02); EST CRCL DRUG DOSING (CG) 24.13 mL/min; POTASSIUM,K 4.3 mmol/L (3.5-5.1)
[2024-07-01] MEDS: Acetaminophen 500 MG Tab PO PRN (12:22)
[2024-07-02] MEDS: Levofloxacin 250 MG Tab PO SCH (14:32)
[2024-07-02] MEDS: Menthol/Zinc Oxide Ointment 113 GM Tube TOP PRN (21:12)
[2024-07-02] MEDS: Acetaminophen/HYDROcodone 325-10 MG Tab PO PRN (23:35)
[2024-07-03 07:52] LABS: ANION GAP 7.1 mEq/L (7-13); CALCIUM 9.6 mg/dL (8.5-10.1); CREATININE 1.2 mg/dL (0.55-1.02); EST CRCL DRUG DOSING (CG) 27.75 mL/min; POTASSIUM,K 5.1 mmol/L (3.5-5.1)
[2024-07-03] MEDS: Bumetanide 1 MG Tab PO ONE (08:57)
[2024-07-03] MEDS: Carbamide Peroxide 6.5% Otic Soln 15 ML Bottle EARBOTH SCH (10:20)
[2024-07-06 06:22] LABS: BASOPHILS PERCENT AUTO 0.5 % (0.0-1.0); EOSINOPHILS PERCENT AUTO 3.5 % (1.0-3.0); HEMATOCRIT 37.4 % (37.0-47.0); HEMOGLOBIN 12.1 g/dL (12.0-16.0); LYMPHOCYTES PERCENT AUTO 28.6 % (20.5-50.1); MEAN CORPUSCULAR HGB CONC 32.4 g/dL (33.0-35.0); MEAN CORPUSCULAR VOLUME 89.7 fL (80-100); MONOCYTES PERCENT AUTO 11.1 % (2-8); NEUTROPHILS PERCENT AUTO 56.3 % (42.2-75.2); PLATELET COUNT,PLT 221 10^3/uL (150-450); RED BLOOD CELL COUNT 4.17 10^6/uL (4.2-5.4); WHITE BLOOD CELL COUNT,WBC 7.5 10^3/uL (5.0-10.0)
[2024-07-06 06:40] LABS: A/G RATIO 0.74; ALBUMIN 2.8 g/dL (3.4-5.0); ANION GAP 9.8 mEq/L (7-13); BILIRUBIN TOTAL 0.4 mg/dL (0.2-1.0); BUN/CREATININE RATIO 23.3 (No establ ref range); CALCIUM 9.4 mg/dL (8.5-10.1); CREATININE 1.03 mg/dL (0.55-1.02); EST CRCL DRUG DOSING (CG) 32.33 mL/min; POTASSIUM,K 4.8 mmol/L (3.5-5.1); PROTEIN TOTAL,TP 6.6 g/dL (6.4-8.2)
[2024-07-06] MEDS: Bumetanide 1 MG Tab PO ONE (11:36)
[2024-07-07] MEDS: Hydrocortisone/Neomycin/Polymyxin B Otic Susp 10 ML Bottle EARBOTH SCH (16:21)
[2024-07-07] MEDS: Nystatin Topical Powder 60 GM Bottle TOP SCH ×2 (17:32→21:36)
[2024-07-07] MEDS ORDERED: Loratadine 10 MG Tab PO PRN (21:29)
[2024-07-07] MEDS ORDERED: Ondansetron 4 MG Tab.DIS PO PRN (21:30)
[2024-07-07] MEDS: Menthol 10%/Methyl Salicylate 15% 85 GM Tube TOP PRN (21:35)
[2024-07-07] MEDS: diphenhydrAMINE 25 MG Tab PO PRN (21:37)
[2024-07-07] MEDS: Acetaminophen/HYDROcodone 325-10 MG Tab PO PRN (21:38)
[2024-07-08] MEDS: Cholecalciferol (Vitamin D3) 25 MCG Tab PO SCH (08:59)
[2024-07-09] MEDS: Nystatin Topical Powder 60 GM Bottle TOP SCH (13:45)
[2024-07-10] MEDS: Enalapril 5 MG Tab PO SCH (09:59)
[2024-07-13 12:43] VITALS: BP 124/64; PULSE 71
== END 2024-07-13 13:25 | disposition home or self-care (01) | DRG 947 ==
LOC: DL.MS 06-26 16:01
PROVIDERS: ADMIT Internal Medicine; ATTEND Internal Medicine
DX: R53.81 Other malaise (principal); J18.9 Pneumonia, unspecified organism; G93.40 Encephalopathy, unspecified; I50.22 Chronic systolic (congestive) heart failure; I42.9 Cardiomyopathy, unspecified; I13.0 Hypertensive heart and chronic kidney disease with heart failure and stage 1 through stage 4 chronic kidney disease, or unspecified chronic kidney disease; I25.10 Atherosclerotic heart disease of native coronary artery without angina pectoris; N18.9 Chronic kidney disease, unspecified; G89.29 Other chronic pain; M54.9 Dorsalgia, unspecified; E78.00 Pure hypercholesterolemia, unspecified; H54.7 Unspecified visual loss; I48.91 Unspecified atrial fibrillation; K21.9 Gastro-esophageal reflux disease without esophagitis; M10.9 Gout, unspecified; E88.09 Other disorders of plasma-protein metabolism, not elsewhere classified; R32 Unspecified urinary incontinence; E11.9 Type 2 diabetes mellitus without complications; E66.9 Obesity, unspecified; Z86.16 Personal history of COVID-19; Z98.49 Cataract extraction status, unspecified eye; Z90.49 Acquired absence of other specified parts of digestive tract; Z86.711 Personal history of pulmonary embolism; Z98.890 Other specified postprocedural states; Z88.1 Allergy status to other antibiotic agents; Z95.5 Presence of coronary angioplasty implant and graft; I25.2 Old myocardial infarction; Z95.810 Presence of automatic (implantable) cardiac defibrillator; Z88.5 Allergy status to narcotic agent; Z88.7 Allergy status to serum and vaccine; Z88.8 Allergy status to other drugs, medicaments and biological substances; Z79.82 Long term (current) use of aspirin; Z79.01 Long term (current) use of anticoagulants; Z79.1 Long term (current) use of non-steroidal anti-inflammatories (NSAID); Z79.899 Other long term (current) drug therapy; Z79.02 Long term (current) use of antithrombotics/antiplatelets; Z86.718 Personal history of other venous thrombosis and embolism
CPT/HCPCS: 36415; 80048; 80053; 81001; 83036; 83735; 85025; 85610; 85730; 87086; 94010; 97110-GO; 97110-GP; 97116-GP; 97161-GP; 97165-GO; 97530-GO; 97530-GP; 97535-GO; 99305; 99308; 99309; 99316; A9270-GY; J3490